=== PATIENT | female | born 1935 | race Caucasian/White ===

== ENCOUNTER 2017-05-18 13:00 | Emergency (ER) | payer MEDICARE, OTHER ==
[~2017-05-18] VITALS: Ht 157.5 cm; Wt 65.3 kg
[~2017-05-18 13:00] MED LIST: ACYC400; AMLO5 PO; AMOCLA875 PO; ASPI325; ASPI325EC; ASPI81CH PO; Ativan0.5 MG PO; CEPH250A PO; CONEST.625 PO; CONESTTC VAG; DOCU100; DOCU100 PO; ESCI10; ESCI10 PO; ESCI20 PO; FENO67 PO; FOLI1; FOLI1 PO; FURO40; GAVILAX17 GM PO; GEMF600 PO; HYDACE5; HYDACE5 PO; HYDR1TAB94 PO; IBUP600 PO; Kristalose20 GM PO; LEVFLO500 PO; LEVSOD100; LEVSOD100 PO; LIVALO4 MG PO; LOPRESSOR PO; LORA.5; LORA2; LOSARTAN-HCTZ1 EAC2 PO; LOSHYD; LOSHYD100 PO; MAGCIT300 PO; METO100 PO; METO100ER PO; METO25ER; Miralax17 GM PO; Norco 5-325 Ta1 EACH PO; OMEP20ER PO; OMEPRAZOLE MAGN20 MG PO; OXYACE5T PO; PANT40; POTA20PAC; POTCHL20ER; POTCHL20ER PO; PRAV20; RISE35; ROSU10TA PO; ROSU5 PO; SOTO80; TRAM50 PO; Tizanidine HCl2 MG PO; VERA240ERA; VERA80; ZOLP10 PO
[2017-05-18] MEDS ORDERED: PENVK500 PO (15:18)
[2017-05-18] MEDS ORDERED: NYST100000 PO (15:18)
[2017-05-18] MEDS ORDERED: Nystatin15 GM TOP (15:18)
[2018-04-22] MEDS ORDERED: FISH OIL 1,2001 EACH PO (14:11)
== END 2017-05-18 15:59 | disposition home or self-care (01) ==
LOC: ER 13:00
DX: A46 Erysipelas (principal); B37.0 Candidal stomatitis; Z88.8 Allergy status to other drugs, medicaments and biological substances; Z79.899 Other long term (current) drug therapy; Z79.82 Long term (current) use of aspirin; Z79.891 Long term (current) use of opiate analgesic; Z87.891 Personal history of nicotine dependence
CPT/HCPCS: 99283

== ENCOUNTER 2018-05-27 11:34 | Day surgery (SDC) | payer MEDICARE, OTHER ==
[~2018-05-27 11:34] MED LIST changes: +FISH OIL 1,2001 EACH PO; +NYST100000 PO; +Nystatin15 GM TOP; +PENVK500 PO
--- NOTE | 2018-05-27 13:32 | NUR ---
INTO STEP-AMBULATING WITH A CANE. PT A&O X3. REPORTS 05/30 LOWER BACK. NPO STATUS AND ALLERGIES CONFIRMED. SBP 187/72.
--- NOTE | 2018-05-27 15:14 | NUR ---
BANDAIDE INTACT TO LOWER BACK. PT REPORTS 4/10 LOWER BACK PAIN. BP 137/61. PT GIVEN JILLIAN CRACKERS AND OJ PER HER REQUEST.DISCHARGE INSTRUCTIONS GIVEN.
== END 2018-05-27 15:30 | disposition home or self-care (01) ==
LOC: ORSCMMR 11:34 → ORD 14:00 → ORSCMMR 15:30
PROVIDERS: Orthopaedic Surgery
PROC: 3E0R33Z Introduction of Anti-inflammatory into Spinal Canal, Percutaneous Approach (ICD-10-PCS; principal; 2018-05-27 14:00)
DX: M54.16 Radiculopathy, lumbar region (principal); I10 Essential (primary) hypertension; G47.33 Obstructive sleep apnea (adult) (pediatric); K21.9 Gastro-esophageal reflux disease without esophagitis; Z79.82 Long term (current) use of aspirin; Z79.899 Other long term (current) drug therapy
CPT/HCPCS: J1040

== ENCOUNTER 2018-08-26 12:39 | Day surgery (SDC) | payer MEDICARE, OTHER ==
[~2018-08-26] VITALS: Ht 159 cm; Wt 60.6 kg
--- NOTE | 2018-08-26 13:28 | NUR ---
"DAY SURGERY RN | ADMIT Patient able to ambulate self around bed. Able to dress self. No issues in admit process. Med rec, allergies, and admit forms completed."
--- NOTE | 2018-08-26 14:34 | NUR ---
08/26/18 1434 Marla Zelaya FLUORO TIME 24 SECONDS.
== END 2018-08-26 22:50 | disposition home or self-care (01) ==
LOC: ORSCMMR 12:39 → ORD 14:00 → ORSCMMR 22:50 → ORSCSDS 09-05 12:15
PROVIDERS: Orthopaedic Surgery
PROC: 3E0R33Z Introduction of Anti-inflammatory into Spinal Canal, Percutaneous Approach (ICD-10-PCS; principal; 2018-08-26 14:00)
DX: M54.16 Radiculopathy, lumbar region (principal); K21.9 Gastro-esophageal reflux disease without esophagitis; E03.9 Hypothyroidism, unspecified; I10 Essential (primary) hypertension; E78.00 Pure hypercholesterolemia, unspecified; I25.10 Atherosclerotic heart disease of native coronary artery without angina pectoris; Z79.82 Long term (current) use of aspirin; Z79.899 Other long term (current) drug therapy
CPT/HCPCS: J1040

== ENCOUNTER 2018-09-04 18:39 | Inpatient (IN) | payer MEDICARE, OTHER ==
[~2018-09-04] VITALS: Ht 165.1 cm; Wt 61.4 kg
[~2018-09-04 18:39] MED LIST changes: -FISH OIL 1,2001 EACH PO; -LOSARTAN-HCTZ1 EAC2 PO; +LOSARTAN-HCTZ1 EACH PO
[2018-09-04] MEDS ORDERED: LEVSOD50 PO (19:08)
[2018-09-04] MEDS ORDERED: Zocor20 MG PO (19:08)
[2018-09-04] MEDS ORDERED: GEMF600 PO (19:08)
[2018-09-04] MEDS ORDERED: METO100 PO (19:08)
[2018-09-04 20:13] LABS: BASOPHILS ABSOLUTE AUTO 0.02 K/mm3 (0.00-0.23); BASOPHILS PERCENT AUTO 0 % (0-2); EOSINOPHILS ABSOLUTE AUTO 0.04 K/mm3 (0.00-0.68); EOSINOPHILS PERCENT AUTO 0 % (0-6); Hemoglobin 12.8 g/dL (11.5-16.0); IMMATURE GRAN ABSOLUTE AUTO 0.04 K/mm3 (0.00-0.10); IMMATURE GRAN PERCENT AUTO 0 % (0-1); LYMPHOCYTES ABSOLUTE AUTO 0.69 K/mm3 (0.84-5.20); LYMPHOCYTES PERCENT AUTO 7 % (21-46); MONOCYTES ABSOLUTE AUTO 0.18 K/mm3 (0.16-1.47); MONOCYTES PERCENT AUTO 2 % (4-13); Mean Corpuscular HGB 31.8 pg (26.0-34.0); Mean Corpuscular HGB Conc 33.7 g/dL (31.5-36.5); Mean Corpuscular Volume 94 fL (80-100); Mean Platelet Volume 12.5 fL (9.1-12.4); NEUTROPHILS ABSOLUTE AUTO 8.46 K/mm3 (1.96-9.15); NEUTROPHILS PERCENT AUTO 90 % (41-73); Platelet Count 152 K/mm3 (150-400); RDW Standard Deviation 45.1 fL (35.1-46.3); Red Blood Cell Count 4.03 M/mm3 (3.80-5.20); White Blood Cell Count 9.43 K/mm3 (4.00-11.30)
[2018-09-04 20:27] LABS: Albumin, Blood 3.4 g/dL (3.4-5.0); Albumin/Globulin Ratio 0.9 (0.8-1.8); Bilirubin, Total 4.4 mg/dL (0.1-1.0); Bun/Creatinine Ratio 32.2 (12.0-20.0); Calcium, Blood 9.1 mg/dL (8.5-10.1); Creatinine, Blood 0.99 mg/dL (0.40-1.00); Globulin, Blood 3.6 g/dL (2.2-4.0); Potassium, Blood 3.6 mmol/L (3.5-5.5); Troponin I 0.038 ng/mL (0.000-0.040)
[2018-09-04] MEDS ORDERED: ZOLP10 PO (21:34)
[2018-09-04] MEDS ORDERED: Fish Oil 10001000 MG PO (22:37)
[2018-09-04] MEDS ORDERED: OMEPRAZOLE20 MG PO (22:37)
--- NOTE | 2018-09-04 23:46 | NUR ---
PT REPORTS THAT SHE WISHES TO BE A FULL CODE. SPOKE WITH THE DR AND GOT ORDER FOR HER TO BE A FULL CODE.
[2018-09-05 00:45] LABS: Source, Urine Clean Catch
[2018-09-05 00:52] LABS: Appearance, Urine Clear (Clear); Blood, Urine Neg (Neg); Color, Urine Amber (P-Yellow); Glucose Qualitative, Urine Neg (Neg); Ketones, Urine Neg (Neg); Leukocyte Esterase, Urine 1+ (Neg); Nitrite, Urine Neg (Neg); Protein, Urine 3+ (Neg); Specific Gravity, Urine 1.005 (1.003-1.022); Urobilinogen, Urine 2+ (Normal)
[2018-09-05 00:55] LABS: Bilirubin, Urine 2+ (Neg)
[2018-09-05 01:00] LABS: Squamous Epithelial Cells Mod /hpf (Few); White Blood Cells, Urine 0-2 /hpf (0-5)
[2018-09-05 01:01] LABS: Bacteria Mod /hpf
--- NOTE | 2018-09-05 05:53 | NUR ---
SHIFT SUMMARY PT IS AN 82 Y/O FEMALE, A NEW ADMIT DURING THE NIGHT WHO ARRIVED ON THE FLOOR AT 2306. PT IS A&O X 4. SHE WAS ADMITTED FOR LOWER CHEST/ABDOMINAL PAIN. ON ADMIT, THE PT REPORTED THAT HER SHARP PAIN HAD BEEN RELIEVED, BUT THAT SHE STILL HAD MILD ACHING PAIN IN THE SAME AREA, RATED AT A 2/10. SHE DENIED ANY NAUSEA OR SOB. PER THE SOLAR PHOTOVOLTAIC INSTALLER, PT REMAINED IN NSR/SINUS PAMELA IN THE 50-60S WITH A FIRST DEGREE HEART BLOCK. THE PT DID HAVE AN ELEVATED TROPONIN ON RECHECK, INCREASED FROM 0.038 TO 0.139. THE HOSPITALIST DR CARRILLO WAS NOTIFIED, NO NEW ORDERS AT THIS TIME. ALL OTHER VITALS STABLE. NO OTHER ACUTE CHANGES IN PT CONDITION NOTED AT THIS TIME. WILL CONTINUE TO MONITOR AND TREAT PER EMAR.
[2018-09-05 07:44] LABS: BASOPHILS ABSOLUTE AUTO 0.03 K/mm3 (0.00-0.23); BASOPHILS PERCENT AUTO 0 % (0-2); EOSINOPHILS ABSOLUTE AUTO 0.02 K/mm3 (0.00-0.68); EOSINOPHILS PERCENT AUTO 0 % (0-6); Hematocrit 34.9 % (33.0-51.0); IMMATURE GRAN ABSOLUTE AUTO 0.05 K/mm3 (0.00-0.10); IMMATURE GRAN PERCENT AUTO 0 % (0-1); LYMPHOCYTES ABSOLUTE AUTO 1.08 K/mm3 (0.84-5.20); LYMPHOCYTES PERCENT AUTO 10 % (21-46); MONOCYTES PERCENT AUTO 7 % (4-13); Mean Corpuscular HGB 32.3 pg (26.0-34.0); Mean Corpuscular HGB Conc 34.4 g/dL (31.5-36.5); Mean Corpuscular Volume 94 fL (80-100); NEUTROPHILS ABSOLUTE AUTO 9.36 K/mm3 (1.96-9.15); NEUTROPHILS PERCENT AUTO 83 % (41-73); Platelet Count 126 K/mm3 (150-400); RDW Coefficient Variation 13.2 % (11.7-14.2); RDW Standard Deviation 45.2 fL (35.1-46.3); Red Blood Cell Count 3.72 M/mm3 (3.80-5.20); White Blood Cell Count 11.34 K/mm3 (4.00-11.30)
[2018-09-05 08:04] LABS: Albumin/Globulin Ratio 0.9 (0.8-1.8); Bilirubin, Total 5.6 mg/dL (0.1-1.0); Bun/Creatinine Ratio 30.7 (12.0-20.0); Calcium, Blood 8.5 mg/dL (8.5-10.1); Creatinine, Blood 1.14 mg/dL (0.40-1.00); Globulin, Blood 3.3 g/dL (2.2-4.0); Potassium, Blood 3.5 mmol/L (3.5-5.5); Total Protein, Blood 6.3 g/dL (6.4-8.2)
[2018-09-05 08:07] LABS: Thyroid Stimulating Hormone 0.264 uIU/mL (0.360-4.800)
--- NOTE | 2018-09-05 10:41 | NUR ---
Echocardiogram completed.
--- NOTE | 2018-09-05 15:34 | NUR ---
Mrs. Head was welcoming of companionship and prayer. She told me about her health issues, her divorce, and expressed deep love for her children. She admits she is fearful of dx. I normalized her emotions, provided gentle senior genetic counselor, and we prayed together. These interventions appeared helpful. Prenatal Genetic Counselor services will remain available.
--- NOTE | 2018-09-05 17:52 | NUR ---
SHIFT SUMMARY- PT A/OX4, SBA UP IN ROOM. PT REPORTS SORENESS TO EPIGASTRIC AREA. PT DENIES ANY OTHER COMPLAINTS. LS CLEAR, ON RA. TELE SR WITH FIRST DEGREE AT 62. ABD TENDER WITH PALPATION. ECHO, U/S AND CT COMPLETED THIS SHIFT. URINE ORANGE IN COLOR AND PT NOTED TO BE SLIGHT JAUNDICED. IVF STARTED, NS AT 75ML/HR X2 LITERS. NO OTHER ACUTE CHANGES THIS SHIFT.
[2018-09-06 04:48] LABS: BASOPHILS ABSOLUTE AUTO 0.02 K/mm3 (0.00-0.23); BASOPHILS PERCENT AUTO 0 % (0-2); EOSINOPHILS ABSOLUTE AUTO 0.12 K/mm3 (0.00-0.68); EOSINOPHILS PERCENT AUTO 2 % (0-6); Hematocrit 34.3 % (33.0-51.0); Hemoglobin 11.5 g/dL (11.5-16.0); IMMATURE GRAN ABSOLUTE AUTO 0.02 K/mm3 (0.00-0.10); IMMATURE GRAN PERCENT AUTO 0 % (0-1); LYMPHOCYTES ABSOLUTE AUTO 0.95 K/mm3 (0.84-5.20); LYMPHOCYTES PERCENT AUTO 15 % (21-46); MONOCYTES ABSOLUTE AUTO 0.44 K/mm3 (0.16-1.47); MONOCYTES PERCENT AUTO 7 % (4-13); Mean Corpuscular HGB Conc 33.5 g/dL (31.5-36.5); Mean Corpuscular Volume 96 fL (80-100); Mean Platelet Volume 12.1 fL (9.1-12.4); NEUTROPHILS ABSOLUTE AUTO 4.86 K/mm3 (1.96-9.15); NEUTROPHILS PERCENT AUTO 76 % (41-73); Platelet Count 101 K/mm3 (150-400); RDW Coefficient Variation 13.1 % (11.7-14.2); RDW Standard Deviation 45.9 fL (35.1-46.3); Red Blood Cell Count 3.59 M/mm3 (3.80-5.20); White Blood Cell Count 6.41 K/mm3 (4.00-11.30)
[2018-09-06 05:15] LABS: Albumin, Blood 2.9 g/dL (3.4-5.0); Anion Gap 7 mmol/L (6-16); Blood Urea Nitrogen 28 mg/dL (8-24); Bun/Creatinine Ratio 28.1 (12.0-20.0); CHOL/HDL RATIO 8.1; CO2, Blood 25 mmol/L (21-32); Calcium, Blood 8.6 mg/dL (8.5-10.1); Chloride, Blood 110 mmol/L (98-108); Cholesterol 145 mg/dL (50-200); Glomerular Filtration Rate 56 (60-); Glucose, Blood 86 mg/dL (70-99); HDL Cholesterol 18 mg/dL (>39); LDL/HDL RATIO 4.3; Low Density Lipoprotein Chol 78 mg/dL (0-110); Phosphorus, Blood 2.5 mg/dL (2.5-4.9); Potassium, Blood 3.2 mmol/L (3.5-5.5); Sodium, Blood 142 mmol/L (136-145); Triglycerides 245 mg/dL (30-160); Very Low Density Lipoprot Chol 49 mg/dL (6-32)
--- NOTE | 2018-09-06 06:07 | NUR ---
*SHIFT SUMMARY* PT IS ALERT AND ORIENTED. SBA TO BATHROOM. TELE ON. NO COMPLAINTS OF PAIN IN CHEST OR ABDOMEN. PATIENT NEEDS STOOL SAMPLE. MIRALAX GIVEN WITH PM PILLS. STILL NO BM. USES CALL LIGHT APPROPRIATELY. PT IS HOPING TO BE ABLE TO GO HOME TODAY. VITAL SIGNS STABLE.
[2018-09-06 09:06] LABS: Albumin, Blood 2.9 g/dL (3.4-5.0); Albumin/Globulin Ratio 0.8 (0.8-1.8); Bilirubin, Direct 1.5 mg/dL (0.0-0.3); Bilirubin, Indirect 0.4 mg/dL (0.1-0.7); Bilirubin, Total 1.9 mg/dL (0.1-1.0); Globulin, Blood 3.7 g/dL (2.2-4.0); Total Protein, Blood 6.6 g/dL (6.4-8.2)
[2018-09-06] MEDS ORDERED: METO50ER PO (11:43)
[2018-09-06] MEDS ORDERED: PANT40 PO (11:44)
[2018-09-06] MEDS ORDERED: LOSA50 PO (11:44)
[2018-09-06] MEDS ORDERED: MELATONIN5 M1 PO (11:46)
[2018-09-06] MEDS ORDERED: MIRALAX17 GM PO (11:46)
--- NOTE | 2018-09-06 14:39 | NUR ---
1340 PT DISCHARGED HOME VIA PERSONAL VEHICLE ACCOMPANIED AND DRIVEN BY FAMILY. IV REMOVED. NEW RX FAXED TO [facility] PER PT REQUEST. D/C INSTRUCTIONS REVIEWED WITH PT AND COPY PROVIDED, PT ACKNOWLEDGED UNDERSTANDING. PT REQUESTED TO MAKE HER OWN FOLLOW UP APPOINTMENT WITH PCP AFTER SHE RETURNED HOME. PT RECIEVED IV ROCEPHIN AND PO POTASSIUM THIS MORNING PRIOR TO D/C. NO NEW CHANGES.
[2018-09-08 04:06] LABS: HBSAG SCREEN Negative (Negative); HEP A AB, IGM Negative (Negative); HEP B CORE AB, IGM Negative (Negative); HEP C VIRUS AB 0.1 (0.0-0.9)
== END 2018-09-06 13:58 | disposition home or self-care (01) | DRG 392 ==
LOC: ER 18:39 → MEDS 18:40 → ENPENDDIS 09-06 11:29 → MEDS 09-06 13:58
PROVIDERS: Emergency Medicine; Internal Medicine; Nurse Practitioner Acute Care; ADMIT Internal Medicine
DX: K21.0 Gastro-esophageal reflux disease with esophagitis (principal); K22.70 Barrett's esophagus without dysplasia; D69.6 Thrombocytopenia, unspecified; I25.10 Atherosclerotic heart disease of native coronary artery without angina pectoris; Z95.1 Presence of aortocoronary bypass graft; E78.5 Hyperlipidemia, unspecified; E03.9 Hypothyroidism, unspecified; I10 Essential (primary) hypertension; K59.00 Constipation, unspecified; F41.1 Generalized anxiety disorder; N81.9 Female genital prolapse, unspecified; M48.00 Spinal stenosis, site unspecified; F32.9 Major depressive disorder, single episode, unspecified; Z66 Do not resuscitate
CPT/HCPCS: 36415; 71046; 74177; 76705; 80053; 80061; 80069; 80074; 80076; 81001; 83036; 83690; 83735; 83880; 84443; 84484; 85025; 87086; 93005; 93010; 93306; 96361; 96365; 96366; 96372; 96375; 99285-25; C9113; G0378; J0696; J1650; J7030; J7050; Q9967

== ENCOUNTER 2020-08-09 17:51 | Inpatient (IN) | payer MEDICARE, OTHER ==
[~2020-08-09] VITALS: Ht 165.1 cm; Wt 51.8 kg
[~2020-08-09 17:51] MED LIST changes: +Fish Oil 10001000 MG PO; +MELATONIN5 M1 PO; +MIRALAX17 GM PO; +OMEPRAZOLE20 MG PO; +PANT40 PO; +Zocor20 MG PO
[2020-08-09 18:17] LABS: BASOPHILS ABSOLUTE AUTO 0.05 K/mm3 (0.00-0.23); BASOPHILS PERCENT AUTO 1 % (0-2); EOSINOPHILS ABSOLUTE AUTO 0.24 K/mm3 (0.00-0.68); EOSINOPHILS PERCENT AUTO 3 % (0-6); Hematocrit 42.2 % (33.0-51.0); Hemoglobin 14.3 g/dL (11.5-16.0); IMMATURE GRAN ABSOLUTE AUTO 0.01 K/mm3 (0.00-0.10); IMMATURE GRAN PERCENT AUTO 0 % (0-1); LYMPHOCYTES ABSOLUTE AUTO 2.96 K/mm3 (0.84-5.20); LYMPHOCYTES PERCENT AUTO 41 % (21-46); MONOCYTES ABSOLUTE AUTO 0.69 K/mm3 (0.16-1.47); MONOCYTES PERCENT AUTO 10 % (4-13); Mean Corpuscular HGB 30.9 pg (26.0-34.0); Mean Corpuscular HGB Conc 33.9 g/dL (31.5-36.5); Mean Corpuscular Volume 91 fL (80-100); NEUTROPHILS ABSOLUTE AUTO 3.21 K/mm3 (1.96-9.15); NEUTROPHILS PERCENT AUTO 45 % (41-73); Platelet Count 172 K/mm3 (150-400); RDW Coefficient Variation 13.4 % (11.7-14.2); RDW Standard Deviation 44.5 fL (35.1-46.3); Red Blood Cell Count 4.63 M/mm3 (3.80-5.20); White Blood Cell Count 7.16 K/mm3 (4.00-11.30)
[2020-08-09 18:50] LABS: Troponin I <0.015 ng/mL (0.000-0.040)
[2020-08-09 18:54] LABS: Alanine Aminotransfer (ALT/SGP 15 U/L (12-78); Albumin, Blood 3.8 g/dL (3.4-5.0); Alk Phos 88 U/L (50-136); Anion Gap 8 mmol/L (6-16); Aspartate Aminotrans (AST/SGOT 23 U/L (12-37); Bilirubin, Total 0.6 mg/dL (0.1-1.0); Blood Urea Nitrogen 14 mg/dL (8-24); Bun/Creatinine Ratio 15.1 (12.0-20.0); CO2, Blood 24 mmol/L (21-32); Calcium, Blood 9.5 mg/dL (8.5-10.1); Chloride, Blood 111 mmol/L (98-108); Creatinine, Blood 0.93 mg/dL (0.40-1.00); Globulin, Blood 3.9 g/dL (2.2-4.0); Glomerular Filtration Rate >60 (60-); Glucose, Blood 99 mg/dL (70-99); Potassium, Blood 3.6 mmol/L (3.5-5.5); Sodium, Blood 143 mmol/L (136-145); Total Protein, Blood 7.7 g/dL (6.4-8.2)
[2020-08-09 19:46] LABS: Phosphorus, Blood 3.9 mg/dL (2.5-4.9)
[2020-08-09 20:27] LABS: Influenza A, PCR NEGATIVE (NEGATIVE); Influenza B, PCR NEGATIVE (NEGATIVE); Resp Syncytial Virus, PCR NEGATIVE (NEGATIVE); SARS-Cov-2 (COVID-19) PCR, MMC NEGATIVE (NEGATIVE)
[2020-08-09] MEDS ORDERED: LOSARTAN POTAS100 M1 PO (20:56)
[2020-08-09] MEDS ORDERED: GEMF600 PO (20:57)
[2020-08-09] MEDS ORDERED: METO100ER PO (20:58)
[2020-08-09] MEDS ORDERED: LIVALO4 MG PO (21:12)
[2020-08-09] MEDS ORDERED: Aspir 8181 MG PO (21:12)
[2020-08-09] MEDS ORDERED: OMEP20ER PO (21:13)
[2020-08-09] MEDS ORDERED: AMLO5 PO (21:13)
[2020-08-09] MEDS ORDERED: EUTHYROX50 MCG PO (21:14)
[2020-08-09] MEDS ORDERED: ESCI10 PO (21:15)
[2020-08-09] MEDS ORDERED: ZOLP10 PO (21:55)
--- NOTE | 2020-08-10 04:03 | NUR ---
BLANKET INSPECTOR SUMMARY PT ARRIVED TO THE UNIT AND WAS ABLE TO TRANSFER SELF FROM ER BED TO PCU BED. PT HAS REMAINED AXO X4 DURING THE SHIFT. PT'S BP WAS STILL ELEVATED W A SBP OF 175 WHEN SHE ARRIVED HOWEVER AFTER SHE RECEIVED HER LOPRESSORE AND NORVASC HER SBP WAS IN THE LOW 130'S. THE PT HAS VOIDED SEVERAL TIMES DURING THIS SHIFT AFTER RECEIVING LASIX IN THE ER. O2 SATS REMAIN >93% ON RM AIR AND TELE HAS SHOWN AFIB W A BBB IN THE 80-90'S. NO C/O PAIN OR NAUSEA THIS SHIFT. PT WAS NOT ABLE TO RECALL WHICH MEDICATIONS SHE TAKES AT HOME, WCTM.
[2020-08-10 05:18] LABS: BASOPHILS ABSOLUTE AUTO 0.03 K/mm3 (0.00-0.23); BASOPHILS PERCENT AUTO 0 % (0-2); EOSINOPHILS PERCENT AUTO 1 % (0-6); Hematocrit 38.9 % (33.0-51.0); Hemoglobin 13.6 g/dL (11.5-16.0); IMMATURE GRAN ABSOLUTE AUTO 0.01 K/mm3 (0.00-0.10); IMMATURE GRAN PERCENT AUTO 0 % (0-1); LYMPHOCYTES ABSOLUTE AUTO 2.81 K/mm3 (0.84-5.20); LYMPHOCYTES PERCENT AUTO 40 % (21-46); MONOCYTES ABSOLUTE AUTO 0.73 K/mm3 (0.16-1.47); MONOCYTES PERCENT AUTO 10 % (4-13); Mean Corpuscular Volume 89 fL (80-100); Mean Platelet Volume 11.9 fL (9.1-12.4); NEUTROPHILS PERCENT AUTO 48 % (41-73); Platelet Count 154 K/mm3 (150-400); RDW Coefficient Variation 13.3 % (11.7-14.2); Red Blood Cell Count 4.39 M/mm3 (3.80-5.20); White Blood Cell Count 7.08 K/mm3 (4.00-11.30)
[2020-08-10 05:43] LABS: Alanine Aminotransfer (ALT/SGP 14 U/L (12-78); Albumin, Blood 3.7 g/dL (3.4-5.0); Albumin/Globulin Ratio 1.1 (0.8-1.8); Alk Phos 78 U/L (50-136); Anion Gap 8 mmol/L (6-16); Aspartate Aminotrans (AST/SGOT 25 U/L (12-37); Bilirubin, Total 0.8 mg/dL (0.1-1.0); Blood Urea Nitrogen 13 mg/dL (8-24); Bun/Creatinine Ratio 15.2 (12.0-20.0); CO2, Blood 27 mmol/L (21-32); Calcium, Blood 9.5 mg/dL (8.5-10.1); Chloride, Blood 107 mmol/L (98-108); Creatinine, Blood 0.86 mg/dL (0.40-1.00); Globulin, Blood 3.5 g/dL (2.2-4.0); Glomerular Filtration Rate >60 (60-); Glucose, Blood 95 mg/dL (70-99); Sodium, Blood 142 mmol/L (136-145); Total Protein, Blood 7.2 g/dL (6.4-8.2); Troponin I 0.023 ng/mL (0.000-0.040)
--- NOTE | 2020-08-10 08:59 | NUR ---
Call to Dr. Cannon regarding morning lab and potassium of 3.0. New orders received for oral potassium supplement, give scheduled lasix, and recheck serum potassium at noon.
--- NOTE | 2020-08-10 09:00 | NUR ---
Echocardiogram in progress.
--- NOTE | 2020-08-10 10:39 | NUR ---
Pt vomited what appeared to be breakfast, undigested, and medications. Probably due to the oral potassium which she took.
--- NOTE | 2020-08-10 12:01 | NUR ---
Pt reported that nausea was relieved shortly after vomiting this morning. Emesis was precipitated by her taking potassium liquid supplement after breakfast. She states that she has GERD and at times that makes her sensitive and causes vomiting.
--- NOTE | 2020-08-10 13:14 | NUR ---
Spiritual care visit conducted. Patient immediately shares her concerns about her future and being able to live alone in her house. She also voices her concerns about living in a facility and how damaging that would be to her spirit. Patient tells me that her family are out of state and could not help. 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 I normalize patient's experience and provide therapeutic listening, pastoral prenatal genetic counselor and prayer. Patient responds well and shows signs of reduced stress and worry. I will continue to remain available.
--- NOTE | 2020-08-10 14:44 | NUR ---
Spoke with Luana in [facility] for [facility] consultation request. She states that either the doctor or Tobias will be over to see the patient.
--- NOTE | 2020-08-10 15:19 | NUR ---
Spoke with patient. She states that she did see Dr. Cannon and he talked to her about another physician seeing her today. Noted Interventional Radiology consultation order; this was called into the office. Feet noted to be warm, pink and dry, with excellent capillary refill, and no observable wounds or ulcers. Pt states that she does have numbness of her feet, which bothers her mostly at night, and twice she has had her feet "give way" under her. STAtes that she was told it was sciatica, and that she had seen Dr. Hollingsworth as an outpatient for suspected problems with her spine. The pt is not really sure what the diagnosis was. Today she has been ambulatory to the bathroom with only minimal assistance.
[2020-08-11 03:59] LABS: BASOPHILS ABSOLUTE AUTO 0.04 K/mm3 (0.00-0.23); BASOPHILS PERCENT AUTO 1 % (0-2); EOSINOPHILS PERCENT AUTO 5 % (0-6); Hematocrit 37.7 % (33.0-51.0); Hemoglobin 13.1 g/dL (11.5-16.0); IMMATURE GRAN ABSOLUTE AUTO 0.01 K/mm3 (0.00-0.10); IMMATURE GRAN PERCENT AUTO 0 % (0-1); LYMPHOCYTES ABSOLUTE AUTO 3.28 K/mm3 (0.84-5.20); LYMPHOCYTES PERCENT AUTO 49 % (21-46); MONOCYTES ABSOLUTE AUTO 0.73 K/mm3 (0.16-1.47); MONOCYTES PERCENT AUTO 11 % (4-13); Mean Corpuscular HGB Conc 34.7 g/dL (31.5-36.5); Mean Corpuscular Volume 89 fL (80-100); Mean Platelet Volume 12.2 fL (9.1-12.4); NEUTROPHILS ABSOLUTE AUTO 2.32 K/mm3 (1.96-9.15); NEUTROPHILS PERCENT AUTO 35 % (41-73); Platelet Count 160 K/mm3 (150-400); RDW Coefficient Variation 13.3 % (11.7-14.2); RDW Standard Deviation 43.1 fL (35.1-46.3); Red Blood Cell Count 4.22 M/mm3 (3.80-5.20); White Blood Cell Count 6.68 K/mm3 (4.00-11.30)
[2020-08-11 04:21] LABS: Albumin, Blood 3.4 g/dL (3.4-5.0); Anion Gap 8 mmol/L (6-16); Blood Urea Nitrogen 18 mg/dL (8-24); Bun/Creatinine Ratio 18.8 (12.0-20.0); CO2, Blood 27 mmol/L (21-32); Calcium, Blood 9.1 mg/dL (8.5-10.1); Chloride, Blood 109 mmol/L (98-108); Creatinine, Blood 0.96 mg/dL (0.40-1.00); Glomerular Filtration Rate 59 (60-); Glucose, Blood 95 mg/dL (70-99); Magnesium, Blood 2.1 mg/dL (1.6-2.4); Phosphorus, Blood 3.8 mg/dL (2.5-4.9); Potassium, Blood 3.1 mmol/L (3.5-5.5); Sodium, Blood 144 mmol/L (136-145); Troponin I 0.022 ng/mL (0.000-0.040)
--- NOTE | 2020-08-11 04:41 | NUR ---
SHIFT SUMMARY PT IS ALERT, ORIENTED, AND COOPERATIVE WITH CARE. PT HAD A QUIET UNEVENTFUL NIGHT WITH BP STABLE. BP 113-138 SYSTOLIC. HR 70-80'S IN AFIB. O2 SATS >90% ON ROOM AIR. PT WAS ABLE TO WALK TO BATHROOM WITH A STAND-BY ASSIST, PT REPORTED FEELING WELL AND WAS ABLE TO STAND AND BRUSH HER TEETH. PT SLEPT T/O MOST OF THE NIGHT WITH MINIMAL INTERRUPTION. PT CONTINUES TO ASK ABOUT DISCHARGE AND WHEN THE DR WILL UPDATE HER. PT OTHERWISE DOING WELL SLEEPING IN BED WITH HOB ELEVATED.
--- NOTE | 2020-08-11 09:15 | NUR ---
Pt is c/o dark, foul-smelling urine and occasional burning with urination. NO UA noted on this admission chart. K level is 3.1 this morning. Yesterday pt vomited after oral liquid potassium supplement was given. Holding IV lasix until can talk with attending physician about replacement.
--- NOTE | 2020-08-11 09:17 | NUR ---
Pt denies any epigastril or abdominal pain since admission.
[2020-08-11 10:14] LABS: Source, Urine Clean Catch
--- NOTE | 2020-08-11 10:20 | NUR ---
Assisted to bathroom to void. UA sent, and potassium phosphast IVPB hung and infusing at this time. Neighbor Pradeep called at the pt's request. He will be here around 1530 to take the pt to flower picker prescriptions and then take her home.
[2020-08-11 10:23] LABS: Appearance, Urine Clear (Clear); Bilirubin, Urine Neg (Neg); Blood, Urine 2+ (Neg); Color, Urine Yellow (P-Yellow); Glucose Qualitative, Urine Neg (Neg); Ketones, Urine Neg (Neg); Leukocyte Esterase, Urine 2+ (Neg); Nitrite, Urine Neg (Neg); Protein, Urine 2+ (Neg); Specific Gravity, Urine 1.015 (1.003-1.022); Urobilinogen, Urine 1+ (Normal)
[2020-08-11 10:42] LABS: Squamous Epithelial Cells Mod /hpf (Few)
[2020-08-11 10:43] LABS: Bacteria Mod /hpf; Hyaline Casts 0-2 /lpf (0-2)
[2020-08-11] MEDS ORDERED: ACET325 PO (11:25)
[2020-08-11] MEDS ORDERED: HYDR1TAB94 PO (11:25)
[2020-08-11] MEDS ORDERED: FURO20 PO (11:26)
[2020-08-11] MEDS ORDERED: HYDR10 PO (11:29)
[2020-08-11] MEDS ORDERED: XARELTO20 MG PO (11:30)
[2020-08-11] MEDS ORDERED: KLOR-CON M1010 MEQ PO (11:30)
[2020-08-11] MEDS ORDERED: PROM25 PO (11:31)
--- NOTE | 2020-08-11 13:16 | NUR ---
Pt c/o tenderness at IV site left AC space. Noted infiltration, about 3 cm area of swelling. IV dc'd, and potassium phosphate infusion continued on the IV of the right hand. Pt reports some very minor irritation but IV site on hand is without swelling, redness or leaking. Ice pack applied for relief.
--- NOTE | 2020-08-11 14:48 | NUR ---
nutrition services assistant saw pt, and Lynn said that she gave her information on accepting PCP, as the pt would like to change providers in out pt setting.
--- NOTE | 2020-08-11 15:47 | NUR ---
reviewed discharge instructions with the patient and her neighbor, Quincy, who is also giving her a ride home. Pt states that he is a very good friend and very helpful to her at home. Pt was taken out for discharge in wheelchair by PCT to private vehicle.
--- NOTE | 2020-08-11 15:49 | NUR ---
Pt instructed to stop aspirin as she will be taking xarelto instead.
== END 2020-08-11 15:47 | disposition home or self-care (01) | DRG 291 ==
LOC: ER 17:51 → PCU 22:03
PROVIDERS: Emergency Medicine; Family Medicine; ADMIT Internal Medicine
DX: I11.0 Hypertensive heart disease with heart failure (principal); I50.31 Acute diastolic (congestive) heart failure; I16.1 Hypertensive emergency; E87.6 Hypokalemia; I73.9 Peripheral vascular disease, unspecified; R10.9 Unspecified abdominal pain; I48.91 Unspecified atrial fibrillation; E78.5 Hyperlipidemia, unspecified; K21.9 Gastro-esophageal reflux disease without esophagitis; E03.9 Hypothyroidism, unspecified; F41.9 Anxiety disorder, unspecified; G47.00 Insomnia, unspecified; I25.10 Atherosclerotic heart disease of native coronary artery without angina pectoris; G47.33 Obstructive sleep apnea (adult) (pediatric); M19.90 Unspecified osteoarthritis, unspecified site; F32.9 Major depressive disorder, single episode, unspecified; Z95.1 Presence of aortocoronary bypass graft; Z90.49 Acquired absence of other specified parts of digestive tract; Z79.899 Other long term (current) drug therapy; Z79.82 Long term (current) use of aspirin; Z90.710 Acquired absence of both cervix and uterus; Z95.5 Presence of coronary angioplasty implant and graft
CPT/HCPCS: 0241U; 36415; 71045; 74174; 80053; 80069; 81001; 83605; 83690; 83735; 83880; 84100; 84132; 84443; 84484; 85025; 86141; 87086; 93005; 93010; 93306; 96374-59; 97116; 97161; 97530; 99285-25; A9270; J1940; J7060; Q9967

== ENCOUNTER 2020-08-29 22:05 | Emergency (ER) | payer MEDICARE, OTHER ==
[~2020-08-29] VITALS: Ht 165.1 cm; Wt 54.9 kg
[~2020-08-29 22:05] MED LIST changes: +ACET325 PO; +Aspir 8181 MG PO; +EUTHYROX50 MCG PO; +FURO20 PO; +HYDR10 PO; +KLOR-CON M1010 MEQ PO; +LOSARTAN POTAS100 M1 PO; +PROM25 PO; +XARELTO20 MG PO
[2020-08-29 22:50] LABS: BASOPHILS ABSOLUTE AUTO 0.07 K/mm3 (0.00-0.23); BASOPHILS PERCENT AUTO 1 % (0-2); EOSINOPHILS ABSOLUTE AUTO 0.19 K/mm3 (0.00-0.68); EOSINOPHILS PERCENT AUTO 3 % (0-6); Hematocrit 38.8 % (33.0-51.0); Hemoglobin 13.2 g/dL (11.5-16.0); IMMATURE GRAN PERCENT AUTO 0 % (0-1); LYMPHOCYTES ABSOLUTE AUTO 2.04 K/mm3 (0.84-5.20); LYMPHOCYTES PERCENT AUTO 36 % (21-46); MONOCYTES ABSOLUTE AUTO 0.63 K/mm3 (0.16-1.47); MONOCYTES PERCENT AUTO 11 % (4-13); Mean Corpuscular Volume 91 fL (80-100); Mean Platelet Volume 12.1 fL (9.1-12.4); NEUTROPHILS ABSOLUTE AUTO 2.73 K/mm3 (1.96-9.15); NEUTROPHILS PERCENT AUTO 48 % (41-73); Platelet Count 137 K/mm3 (150-400); RDW Coefficient Variation 13.5 % (11.7-14.2); Red Blood Cell Count 4.26 M/mm3 (3.80-5.20); White Blood Cell Count 5.66 K/mm3 (4.00-11.30)
[2020-08-29 23:07] LABS: Alanine Aminotransfer (ALT/SGP 15 U/L (12-78); Albumin, Blood 3.5 g/dL (3.4-5.0); Albumin/Globulin Ratio 0.9 (0.8-1.8); Alk Phos 85 U/L (50-136); Anion Gap 6 mmol/L (6-16); Aspartate Aminotrans (AST/SGOT 19 U/L (12-37); Bilirubin, Total 0.6 mg/dL (0.1-1.0); Blood Urea Nitrogen 15 mg/dL (8-24); Bun/Creatinine Ratio 18.4 (12.0-20.0); CO2, Blood 24 mmol/L (21-32); Calcium, Blood 9.3 mg/dL (8.5-10.1); Chloride, Blood 112 mmol/L (98-108); Creatinine, Blood 0.82 mg/dL (0.40-1.00); Globulin, Blood 3.8 g/dL (2.2-4.0); Glomerular Filtration Rate >60 (60-); Glucose, Blood 101 mg/dL (70-99); Potassium, Blood 3.9 mmol/L (3.5-5.5); Sodium, Blood 142 mmol/L (136-145); Total Protein, Blood 7.3 g/dL (6.4-8.2)
[2020-08-30] LABS: Troponin I <0.015 ng/mL (0.000-0.040)
[2020-08-30] MEDS ORDERED: XARELTO20 M1 PO (17:04)
[2020-08-30] MEDS ORDERED: TRAZ50 PO (17:05)
[2020-08-30] MEDS ORDERED: SIME80CH PO (18:11)
[2020-08-30] MEDS ORDERED: Norco 5-325 Ta1 EACH PO (18:12)
== END 2020-08-30 05:48 | disposition home or self-care (01) ==
LOC: ER 22:05
PROVIDERS: Emergency Medicine
DX: R00.2 Palpitations (principal); Z79.899 Other long term (current) drug therapy; Z79.01 Long term (current) use of anticoagulants
CPT/HCPCS: 36415; 71046; 80053; 83690; 84484; 85025; 93005; 93010; 99285-25

== ENCOUNTER 2020-08-30 16:25 | Emergency (ER) | payer MEDICARE, OTHER ==
[~2020-08-30] VITALS: Ht 165.1 cm; Wt 55.3 kg
[2020-08-30 16:55] LABS: BASOPHILS ABSOLUTE AUTO 0.04 K/mm3 (0.00-0.23); BASOPHILS PERCENT AUTO 1 % (0-2); EOSINOPHILS ABSOLUTE AUTO 0.13 K/mm3 (0.00-0.68); EOSINOPHILS PERCENT AUTO 2 % (0-6); Hematocrit 43.1 % (33.0-51.0); Hemoglobin 14.5 g/dL (11.5-16.0); IMMATURE GRAN ABSOLUTE AUTO 0.02 K/mm3 (0.00-0.10); IMMATURE GRAN PERCENT AUTO 0 % (0-1); LYMPHOCYTES ABSOLUTE AUTO 1.78 K/mm3 (0.84-5.20); LYMPHOCYTES PERCENT AUTO 26 % (21-46); MONOCYTES ABSOLUTE AUTO 0.77 K/mm3 (0.16-1.47); MONOCYTES PERCENT AUTO 11 % (4-13); Mean Corpuscular HGB Conc 33.6 g/dL (31.5-36.5); Mean Corpuscular Volume 92 fL (80-100); Mean Platelet Volume 12.1 fL (9.1-12.4); NEUTROPHILS ABSOLUTE AUTO 4.05 K/mm3 (1.96-9.15); NEUTROPHILS PERCENT AUTO 60 % (41-73); Platelet Count 153 K/mm3 (150-400); RDW Coefficient Variation 13.8 % (11.7-14.2); RDW Standard Deviation 46.2 fL (35.1-46.3); Red Blood Cell Count 4.67 M/mm3 (3.80-5.20); White Blood Cell Count 6.79 K/mm3 (4.00-11.30)
[2020-08-30] MEDS ORDERED: XARELTO20 M1 PO (17:04)
[2020-08-30 17:05] LABS: Alanine Aminotransfer (ALT/SGP 15 U/L (12-78); Albumin, Blood 4.3 g/dL (3.4-5.0); Alk Phos 100 U/L (50-136); Anion Gap 7 mmol/L (6-16); Aspartate Aminotrans (AST/SGOT 23 U/L (12-37); Blood Urea Nitrogen 14 mg/dL (8-24); Bun/Creatinine Ratio 17.5 (12.0-20.0); CO2, Blood 24 mmol/L (21-32); Calcium, Blood 10.1 mg/dL (8.5-10.1); Chloride, Blood 109 mmol/L (98-108); Globulin, Blood 4.2 g/dL (2.2-4.0); Glomerular Filtration Rate >60 (60-); Glucose, Blood 92 mg/dL (70-99); Potassium, Blood 3.8 mmol/L (3.5-5.5); Sodium, Blood 140 mmol/L (136-145); Total Protein, Blood 8.5 g/dL (6.4-8.2); Troponin I <0.015 ng/mL (0.000-0.040)
[2020-08-30] MEDS ORDERED: TRAZ50 PO (17:05)
[2020-08-30] MEDS ORDERED: SIME80CH PO (18:11)
[2020-08-30] MEDS ORDERED: Norco 5-325 Ta1 EACH PO (18:12)
== END 2020-08-30 19:02 | disposition home or self-care (01) ==
LOC: ER 16:25
PROVIDERS: Emergency Medicine
DX: R07.89 Other chest pain (principal); R06.00 Dyspnea, unspecified; I10 Essential (primary) hypertension; E78.00 Pure hypercholesterolemia, unspecified; I25.2 Old myocardial infarction
CPT/HCPCS: 36415; 71046; 80053; 83880; 84484; 85025; 93005; 93010; 99284-25; A9270; A9270-GY

== ENCOUNTER 2020-09-28 10:59 | Emergency (ER) | payer OTHER ==
[~2020-09-28] VITALS: Ht 165.1 cm; Wt 52.2 kg
[~2020-09-28 10:59] MED LIST changes: +SIME80CH PO; +TRAZ50 PO; +XARELTO20 M1 PO
[2020-09-28 12:58] LABS: BASOPHILS ABSOLUTE AUTO 0.04 K/mm3 (0.00-0.23); BASOPHILS PERCENT AUTO 1 % (0-2); EOSINOPHILS ABSOLUTE AUTO 0.17 K/mm3 (0.00-0.68); EOSINOPHILS PERCENT AUTO 3 % (0-6); Hematocrit 35.8 % (33.0-51.0); IMMATURE GRAN ABSOLUTE AUTO 0.02 K/mm3 (0.00-0.10); IMMATURE GRAN PERCENT AUTO 0 % (0-1); LYMPHOCYTES ABSOLUTE AUTO 1.89 K/mm3 (0.84-5.20); LYMPHOCYTES PERCENT AUTO 33 % (21-46); MONOCYTES ABSOLUTE AUTO 0.72 K/mm3 (0.16-1.47); MONOCYTES PERCENT AUTO 12 % (4-13); Mean Corpuscular HGB 30.8 pg (26.0-34.0); Mean Corpuscular HGB Conc 33.5 g/dL (31.5-36.5); Mean Corpuscular Volume 92 fL (80-100); Mean Platelet Volume 12.9 fL (9.1-12.4); NEUTROPHILS ABSOLUTE AUTO 2.96 K/mm3 (1.96-9.15); NEUTROPHILS PERCENT AUTO 51 % (41-73); Platelet Count 132 K/mm3 (150-400); RDW Coefficient Variation 13.7 % (11.7-14.2)
[2020-09-28 13:21] LABS: Alanine Aminotransfer (ALT/SGP 23 U/L (12-78); Albumin, Blood 3.4 g/dL (3.4-5.0); Albumin/Globulin Ratio 0.9 (0.8-1.8); Alk Phos 80 U/L (50-136); Anion Gap 7 mmol/L (6-16); Aspartate Aminotrans (AST/SGOT 37 U/L (12-37); Bilirubin, Total 0.5 mg/dL (0.1-1.0); Blood Urea Nitrogen 27 mg/dL (8-24); CO2, Blood 24 mmol/L (21-32); Calcium, Blood 9.2 mg/dL (8.5-10.1); Chloride, Blood 110 mmol/L (98-108); Creatinine, Blood 0.93 mg/dL (0.40-1.00); Globulin, Blood 3.8 g/dL (2.2-4.0); Glomerular Filtration Rate >60 (60-); Glucose, Blood 97 mg/dL (70-99); Magnesium, Blood 2.2 mg/dL (1.6-2.4); Potassium, Blood 3.8 mmol/L (3.5-5.5); Sodium, Blood 141 mmol/L (136-145); Total Protein, Blood 7.2 g/dL (6.4-8.2)
[2020-09-28] MEDS ORDERED: TRAM50 PO (14:24)
[2020-09-28] MEDS ORDERED: ANUCORT-HC25 M1 PR (14:24)
== END 2020-09-28 14:51 | disposition home or self-care (01) ==
LOC: ER 10:59
PROVIDERS: Emergency Medicine
DX: K64.4 Residual hemorrhoidal skin tags (principal); Z79.01 Long term (current) use of anticoagulants; Z79.899 Other long term (current) drug therapy
CPT/HCPCS: 36415; 73590; 80053; 82272; 83735; 85025; 99283-25; A9270

== ENCOUNTER 2020-10-19 06:46 | Emergency (ER) | payer OTHER ==
[~2020-10-19] VITALS: Ht 160 cm; Wt 52.6 kg
[~2020-10-19 06:46] MED LIST changes: +ANUCORT-HC25 M1 PR
[2020-10-19 08:00] LABS: Calcium, Ionized (POC) 1.11 mmol/L (1.10-1.46); Chloride (POC) 107 mmol/L (98-108); Creatinine (POC) 0.8 mg/dL (0.6-1.0); Glucose (ISTAT POC) 105 mg/dL (70-99); Hemoglobin (POC) 11.9 g/dL (12.0-16.0); Potassium (POC) 3.9 mmol/L (3.5-5.5); Sodium (POC) 141 mmol/L (135-148); Total CO2 (POC) 25 mmol/L (21-32)
== END 2020-10-19 09:54 | disposition home or self-care (01) ==
LOC: ER 06:46
PROVIDERS: Emergency Medicine
DX: M79.605 Pain in left leg (principal); M79.604 Pain in right leg; I10 Essential (primary) hypertension; I48.91 Unspecified atrial fibrillation; I25.2 Old myocardial infarction; K21.9 Gastro-esophageal reflux disease without esophagitis; E78.00 Pure hypercholesterolemia, unspecified; E03.9 Hypothyroidism, unspecified; Z79.899 Other long term (current) drug therapy
CPT/HCPCS: 80047; 85014; 99283; A9270

== ENCOUNTER 2020-11-04 20:33 | Emergency (ER) | payer OTHER ==
[~2020-11-04] VITALS: Ht 157.5 cm; Wt 51.7 kg
== END 2020-11-04 23:32 | disposition home or self-care (01) ==
LOC: ER 20:33
DX: M79.605 Pain in left leg (principal); M79.604 Pain in right leg; Z79.01 Long term (current) use of anticoagulants; Z79.899 Other long term (current) drug therapy
CPT/HCPCS: 99283

== ENCOUNTER 2020-11-16 02:21 | Emergency (ER) | payer OTHER ==
[~2020-11-16] VITALS: Ht 157.5 cm; Wt 54.4 kg
[2020-11-16 02:54] LABS: BASOPHILS ABSOLUTE AUTO 0.03 K/mm3 (0.00-0.23); BASOPHILS PERCENT AUTO 1 % (0-2); EOSINOPHILS ABSOLUTE AUTO 0.11 K/mm3 (0.00-0.68); EOSINOPHILS PERCENT AUTO 3 % (0-6); Hemoglobin 10.8 g/dL (11.5-16.0); IMMATURE GRAN ABSOLUTE AUTO 0.01 K/mm3 (0.00-0.10); IMMATURE GRAN PERCENT AUTO 0 % (0-1); LYMPHOCYTES ABSOLUTE AUTO 1.95 K/mm3 (0.84-5.20); LYMPHOCYTES PERCENT AUTO 44 % (21-46); MONOCYTES ABSOLUTE AUTO 0.57 K/mm3 (0.16-1.47); MONOCYTES PERCENT AUTO 13 % (4-13); Mean Corpuscular HGB 29.7 pg (26.0-34.0); Mean Corpuscular HGB Conc 32.7 g/dL (31.5-36.5); Mean Corpuscular Volume 91 fL (80-100); NEUTROPHILS ABSOLUTE AUTO 1.78 K/mm3 (1.96-9.15); NEUTROPHILS PERCENT AUTO 40 % (41-73); Platelet Count 133 K/mm3 (150-400); RDW Coefficient Variation 13.2 % (11.7-14.2); Red Blood Cell Count 3.64 M/mm3 (3.80-5.20); White Blood Cell Count 4.45 K/mm3 (4.00-11.30)
[2020-11-16 03:15] LABS: Alanine Aminotransfer (ALT/SGP 15 U/L (12-78); Albumin, Blood 3.6 g/dL (3.4-5.0); Alk Phos 65 U/L (50-136); Anion Gap 5 mmol/L (6-16); Aspartate Aminotrans (AST/SGOT 20 U/L (12-37); Bilirubin, Total 0.5 mg/dL (0.1-1.0); Blood Urea Nitrogen 20 mg/dL (8-24); Bun/Creatinine Ratio 23.4 (12.0-20.0); CO2, Blood 28 mmol/L (21-32); Calcium, Blood 9.2 mg/dL (8.5-10.1); Chloride, Blood 107 mmol/L (98-108); Creatinine, Blood 0.86 mg/dL (0.40-1.00); Globulin, Blood 3.6 g/dL (2.2-4.0); Glomerular Filtration Rate >60 (60-); Glucose, Blood 92 mg/dL (70-99); Potassium, Blood 3.7 mmol/L (3.5-5.5); Sodium, Blood 140 mmol/L (136-145); Total Protein, Blood 7.2 g/dL (6.4-8.2)
== END 2020-11-16 04:27 | disposition home or self-care (01) ==
LOC: ER 02:21
PROVIDERS: Emergency Medicine
DX: M25.572 Pain in left ankle and joints of left foot (principal); M25.571 Pain in right ankle and joints of right foot; R60.0 Localized edema; E78.5 Hyperlipidemia, unspecified; I10 Essential (primary) hypertension; I25.2 Old myocardial infarction; K21.9 Gastro-esophageal reflux disease without esophagitis; E03.9 Hypothyroidism, unspecified; I48.91 Unspecified atrial fibrillation; Z79.899 Other long term (current) drug therapy; Z79.01 Long term (current) use of anticoagulants
CPT/HCPCS: 36415; 71046; 80053; 83880; 85025; 99284-25

== ENCOUNTER 2020-11-27 09:47 | Emergency (ER) | payer OTHER ==
[~2020-11-27] VITALS: Ht 157.5 cm; Wt 54.4 kg
[2020-11-27 11:09] LABS: BASOPHILS ABSOLUTE AUTO 0.04 K/mm3 (0.00-0.23); BASOPHILS PERCENT AUTO 1 % (0-2); EOSINOPHILS ABSOLUTE AUTO 0.14 K/mm3 (0.00-0.68); EOSINOPHILS PERCENT AUTO 3 % (0-6); Hematocrit 36.2 % (33.0-51.0); Hemoglobin 11.6 g/dL (11.5-16.0); IMMATURE GRAN ABSOLUTE AUTO 0.03 K/mm3 (0.00-0.10); IMMATURE GRAN PERCENT AUTO 1 % (0-1); LYMPHOCYTES ABSOLUTE AUTO 1.56 K/mm3 (0.84-5.20); LYMPHOCYTES PERCENT AUTO 32 % (21-46); MONOCYTES ABSOLUTE AUTO 0.51 K/mm3 (0.16-1.47); MONOCYTES PERCENT AUTO 11 % (4-13); Mean Corpuscular HGB 28.6 pg (26.0-34.0); Mean Corpuscular Volume 89 fL (80-100); NEUTROPHILS ABSOLUTE AUTO 2.53 K/mm3 (1.96-9.15); NEUTROPHILS PERCENT AUTO 53 % (41-73); RDW Coefficient Variation 13.1 % (11.7-14.2); RDW Standard Deviation 43.1 fL (35.1-46.3); Red Blood Cell Count 4.06 M/mm3 (3.80-5.20); White Blood Cell Count 4.81 K/mm3 (4.00-11.30)
[2020-11-27 11:12] LABS: Albumin, Blood 3.4 g/dL (3.4-5.0); Albumin/Globulin Ratio 0.9 (0.8-1.8); Bilirubin, Total 0.5 mg/dL (0.1-1.0); Bun/Creatinine Ratio 25.3 (12.0-20.0); Calcium, Blood 8.9 mg/dL (8.5-10.1); Creatinine, Blood 0.95 mg/dL (0.40-1.00); Globulin, Blood 3.9 g/dL (2.2-4.0); Potassium, Blood 3.5 mmol/L (3.5-5.5); Total Protein, Blood 7.3 g/dL (6.4-8.2)
[2020-11-27 11:25] LABS: Mean Platelet Volume 12.4 fL (9.1-12.4); Platelet Count 151 K/mm3 (150-400)
[2020-11-27 11:27] LABS: Source, Urine Clean Catch
[2020-11-27 12:00] LABS: Appearance, Urine Clear (Clear); Bilirubin, Urine Neg (Neg); Blood, Urine Neg (Neg); Color, Urine Yellow (P-Yellow); Glucose Qualitative, Urine Neg (Neg); Ketones, Urine Neg (Neg); Leukocyte Esterase, Urine 1+ (Neg); Nitrite, Urine Neg (Neg); Protein, Urine Neg (Neg); Specific Gravity, Urine 1.015 (1.003-1.022); Urobilinogen, Urine NORM (Normal)
[2020-11-27] MEDS ORDERED: ACET500 PO (12:54)
[2020-11-27] MEDS ORDERED: Voltaren100 GM TOP (12:54)
[2020-11-27 13:02] LABS: White Blood Cells, Urine 0-2 /hpf (0-5)
[2020-11-27 13:03] LABS: Bacteria Not Seen /hpf; Red Blood Cells, Urine Rare /hpf (0-2); Squamous Epithelial Cells Few /hpf (Few); Yeast/Fungi Urine Few /hpf
== END 2020-11-27 13:32 | disposition home or self-care (01) ==
LOC: ER 09:47
PROVIDERS: Emergency Medicine
DX: R10.30 Lower abdominal pain, unspecified (principal); E78.5 Hyperlipidemia, unspecified; I25.2 Old myocardial infarction; I10 Essential (primary) hypertension; K21.9 Gastro-esophageal reflux disease without esophagitis; I48.91 Unspecified atrial fibrillation; Z79.01 Long term (current) use of anticoagulants
CPT/HCPCS: 80053; 81001; 83605; 85025; 87086; 93005; 93010; 99284-25; A9270

== ENCOUNTER 2020-12-28 09:53 | Day surgery (SDC) | payer OTHER ==
[~2020-12-28] VITALS: Ht 157.5 cm; Wt 54.0 kg
[~2020-12-28 09:53] MED LIST changes: +ACET500 PO; +Voltaren100 GM TOP
[2020-12-28] MEDS ORDERED: C COMPLEX1000 M1 PO (10:33)
[2020-12-28] MEDS ORDERED: TRAM50 PO (10:39)
[2020-12-28] MEDS ORDERED: CALCIUM CARBON500 M1 PO (10:43)
[2020-12-28] MEDS ORDERED: PREMARIN TD (10:44)
[2020-12-28] MEDS ORDERED: FISH OIL 1,2001 EAC7 PO (10:45)
[2020-12-28] MEDS ORDERED: VITAMIN D31000 UNI1 PO (10:46)
--- NOTE | 2020-12-28 14:00 | NUR ---
GROIN SITE CHECKED-HEMATOMA NOTED IN THE SAME AREA PREVIOUS HEMATOMA WAS PRESENT. PRESSURE WAS HELD FOR 10 MIN-HEMATOMA RESOLVED-SITE CDI.
--- NOTE | 2020-12-28 15:35 | NUR ---
ASSUMED CARE OF PT. PT AWAKE AND CONVERSING APPROPRIATELY; DENIES PAIN POST PROCEDURE. MONITOR AFIB 70-80'S, B/P 128/56, AFEBRILE, SPO2 95% RA. L GROIN NO SWELLING/HEMATOMA, TEGADERM DRSG INTACT; ANGIO SEAL DEPLOYED, PULSES RLE: DOP X 2, LLE PT DOP. R PT NO SWELLING/HEMATOMA, VON AND TEGADERM DRSG INTACT, DRAINAGE W/I MAPPING. PT'S FAMILY UPDATED WITH PT'S CONSENT.
--- NOTE | 2020-12-28 16:45 | NUR ---
PT'S HOB ELEVATED TO 30 DEGREES, SITE UNCHANGED; TOOK LUNCH WITHOUT ISSUE.
--- NOTE | 2020-12-28 17:20 | NUR ---
PT AMB TO BATHROOM, SITE UNCHANGED. PT DRESSED SELF WITHOUT ISSUE, SITE UNCHANGED; IV REMOVED-CANNULA INTACT.
--- NOTE | 2020-12-28 17:35 | NUR ---
PT AND NIECE RECEIVED DISCHARGE INSTRUCTIONS, MED LIST AND AFTER CARE INSTRUCTIONS; VERBALIZED GOOD UNDERSTANDING. PT LEFT FACILITY VIA W/C, CONDITION STABLE.
== END 2020-12-28 23:33 | disposition home or self-care (01) ==
LOC: MHTC 09:53
DX: I70.213 Atherosclerosis of native arteries of extremities with intermittent claudication, bilateral legs (principal); I70.1 Atherosclerosis of renal artery; I65.23 Occlusion and stenosis of bilateral carotid arteries; I48.91 Unspecified atrial fibrillation; I25.10 Atherosclerotic heart disease of native coronary artery without angina pectoris; E78.5 Hyperlipidemia, unspecified; K21.9 Gastro-esophageal reflux disease without esophagitis; E03.9 Hypothyroidism, unspecified
CPT/HCPCS: 37227; 37228; 37232; 75625; 75716; 75774; 76937; 99152; 99153; C1714; C1725; C1760; C1769; C1874; C1887; C1894; C2623; J1265; J2250; J3010; J7030; J7050; Q9967

== ENCOUNTER 2020-12-30 18:34 | Emergency (ER) | payer OTHER ==
[~2020-12-30] VITALS: Ht 157.5 cm; Wt 53.5 kg
[~2020-12-30 18:34] MED LIST changes: +C COMPLEX1000 M1 PO; +CALCIUM CARBON500 M1 PO; +FISH OIL 1,2001 EAC7 PO; +PREMARIN TD; +VITAMIN D31000 UNI1 PO
[2020-12-30 19:10] LABS: BASOPHILS ABSOLUTE AUTO 0.01 K/mm3 (0.00-0.23); BASOPHILS PERCENT AUTO 0 % (0-2); EOSINOPHILS PERCENT AUTO 2 % (0-6); Hematocrit 31.9 % (33.0-51.0); Hemoglobin 10.2 g/dL (11.5-16.0); IMMATURE GRAN ABSOLUTE AUTO 0.01 K/mm3 (0.00-0.10); IMMATURE GRAN PERCENT AUTO 0 % (0-1); LYMPHOCYTES ABSOLUTE AUTO 1.75 K/mm3 (0.84-5.20); LYMPHOCYTES PERCENT AUTO 28 % (21-46); MONOCYTES ABSOLUTE AUTO 1.09 K/mm3 (0.16-1.47); MONOCYTES PERCENT AUTO 17 % (4-13); Mean Corpuscular HGB 26.8 pg (26.0-34.0); Mean Corpuscular Volume 84 fL (80-100); Mean Platelet Volume 12.5 fL (9.1-12.4); NEUTROPHILS ABSOLUTE AUTO 3.39 K/mm3 (1.96-9.15); NEUTROPHILS PERCENT AUTO 53 % (41-73); Platelet Count 146 K/mm3 (150-400); RDW Coefficient Variation 14.3 % (11.7-14.2); RDW Standard Deviation 43.5 fL (35.1-46.3); White Blood Cell Count 6.35 K/mm3 (4.00-11.30)
[2020-12-30 19:43] LABS: Albumin, Blood 3.3 g/dL (3.4-5.0); Albumin/Globulin Ratio 0.8 (0.8-1.8); Bilirubin, Total 0.6 mg/dL (0.1-1.0); Bun/Creatinine Ratio 23.8 (12.0-20.0); Calcium, Blood 8.9 mg/dL (8.5-10.1); Creatinine, Blood 1.05 mg/dL (0.40-1.00); Potassium, Blood 3.7 mmol/L (3.5-5.5); Total Protein, Blood 7.3 g/dL (6.4-8.2); Troponin I 0.019 ng/mL (0.000-0.040)
== END 2020-12-30 22:09 | disposition home or self-care (01) ==
LOC: ER 18:34
PROVIDERS: Emergency Medicine
DX: R10.13 Epigastric pain (principal); I48.20 Chronic atrial fibrillation, unspecified; I10 Essential (primary) hypertension; E03.9 Hypothyroidism, unspecified; K21.9 Gastro-esophageal reflux disease without esophagitis; Z95.1 Presence of aortocoronary bypass graft; Z79.01 Long term (current) use of anticoagulants; Z79.899 Other long term (current) drug therapy
CPT/HCPCS: 71045; 80053; 83880; 84484; 85025; 93005; 93010; 99285-25; A9270

== ENCOUNTER 2021-05-04 08:27 | Day surgery (SDC) | payer OTHER ==
[~2021-05-04] VITALS: Ht 165.1 cm; Wt 56.7 kg
[~2021-05-04 08:27] MED LIST changes: +ALMACONE SUSPE355 ML PO; +Acetaminophen325 M1 PO; +CENTRUM SILVER WOMEN PO; +FAMO20 PO; +POTA10T PO; +PROMETHAZINE12.5 M1 PO; +TOCO1000; +VITAMIN D3 PO; +Vitamin B-121000 MCG PO
[2021-05-04] MEDS ORDERED: LIVALO4 MG PO (09:43)
--- NOTE | 2021-05-04 10:35 | NUR ---
05/04/21 1035 [address] USED PER ORDER BY DR WATKINS CONTRACT TO VERIFY PLACEMENT DURING PROCEDURE.
== END 2021-05-04 11:02 | disposition home or self-care (01) ==
LOC: ORSCSDS 08:27
PROVIDERS: Orthopaedic Surgery
PROC: 3E0R33Z Introduction of Anti-inflammatory into Spinal Canal, Percutaneous Approach (ICD-10-PCS; principal; 2021-05-04 10:00)
DX: M54.16 Radiculopathy, lumbar region (principal); M47.816 Spondylosis without myelopathy or radiculopathy, lumbar region; M48.061 Spinal stenosis, lumbar region without neurogenic claudication; I10 Essential (primary) hypertension; I25.10 Atherosclerotic heart disease of native coronary artery without angina pectoris; E78.00 Pure hypercholesterolemia, unspecified; I48.91 Unspecified atrial fibrillation; G47.33 Obstructive sleep apnea (adult) (pediatric); E78.5 Hyperlipidemia, unspecified; K21.9 Gastro-esophageal reflux disease without esophagitis; I21.9 Acute myocardial infarction, unspecified; I25.2 Old myocardial infarction; Z79.82 Long term (current) use of aspirin; Z79.01 Long term (current) use of anticoagulants; Z79.899 Other long term (current) drug therapy
CPT/HCPCS: J1040

== ENCOUNTER 2021-06-20 16:35 | Observation (INO) | payer OTHER ==
[~2021-06-20] VITALS: Ht 157.5 cm; Wt 56.3 kg
[2021-06-20 17:28] LABS: Albumin, Blood 3.5 g/dL (3.4-5.0); Albumin/Globulin Ratio 1.1 (0.8-1.8); Bilirubin, Total 0.4 mg/dL (0.1-1.0); Bun/Creatinine Ratio 14.2 (12.0-20.0); Calcium, Blood 9.4 mg/dL (8.5-10.1); Creatinine, Blood 0.91 mg/dL (0.40-1.00); Globulin, Blood 3.2 g/dL (2.2-4.0); Potassium, Blood 3.4 mmol/L (3.5-5.5); Total Protein, Blood 6.7 g/dL (6.4-8.2)
[2021-06-20 17:34] LABS: BASOPHILS ABSOLUTE AUTO 0.03 K/mm3 (0.00-0.23); BASOPHILS PERCENT AUTO 1 % (0-2); EOSINOPHILS ABSOLUTE AUTO 0.06 K/mm3 (0.00-0.68); EOSINOPHILS PERCENT AUTO 1 % (0-6); Hematocrit 26.9 % (33.0-51.0); IMMATURE GRAN ABSOLUTE AUTO 0.01 K/mm3 (0.00-0.10); IMMATURE GRAN PERCENT AUTO 0 % (0-1); LYMPHOCYTES ABSOLUTE AUTO 2.03 K/mm3 (0.84-5.20); LYMPHOCYTES PERCENT AUTO 44 % (21-46); MONOCYTES ABSOLUTE AUTO 0.52 K/mm3 (0.16-1.47); MONOCYTES PERCENT AUTO 11 % (4-13); Mean Corpuscular HGB 21.6 pg (26.0-34.0); Mean Corpuscular HGB Conc 29.7 g/dL (31.5-36.5); Mean Corpuscular Volume 73 fL (80-100); Mean Platelet Volume 11.3 fL (9.1-12.4); NEUTROPHILS ABSOLUTE AUTO 1.93 K/mm3 (1.96-9.15); NEUTROPHILS PERCENT AUTO 42 % (41-73); Platelet Count 130 K/mm3 (150-400); RDW Standard Deviation 44.1 fL (35.1-46.3); White Blood Cell Count 4.58 K/mm3 (4.00-11.30)
[2021-06-20 22:22] LABS: Hematocrit 28.5 % (33.0-51.0); Hemoglobin 8.5 g/dL (11.5-16.0); Mean Corpuscular HGB 21.7 pg (26.0-34.0); Mean Corpuscular HGB Conc 29.8 g/dL (31.5-36.5); Mean Corpuscular Volume 73 fL (80-100); Mean Platelet Volume 11.2 fL (9.1-12.4); Platelet Count 132 K/mm3 (150-400); RDW Standard Deviation 43.8 fL (35.1-46.3); Red Blood Cell Count 3.92 M/mm3 (3.80-5.20); White Blood Cell Count 4.58 K/mm3 (4.00-11.30)
[2021-06-20 23:38] LABS: International Normalized Ratio 1.13; Prothrombin Time Results 11.8 Sec (9.7-11.5)
[2021-06-21 00:03] LABS: Influenza A, PCR NEGATIVE (NEGATIVE); Influenza B, PCR NEGATIVE (NEGATIVE); Resp Syncytial Virus, PCR NEGATIVE (NEGATIVE); SARS-Cov-2 (COVID-19) PCR, MMC NEGATIVE (NEGATIVE)
[2021-06-21] MEDS ORDERED: ZOLP10 PO (01:27)
--- NOTE | 2021-06-21 01:39 | NUR ---
CALLED DR CARMONA REGARDING PT'S ELEVATED BP. ORDERS WILL BE ENTERED BY DR CARMONA.
[2021-06-21 01:41] LABS: Hematocrit 26.7 % (33.0-51.0); Hemoglobin 7.9 g/dL (11.5-16.0)
--- NOTE | 2021-06-21 05:58 | NUR ---
SHIFT SUMMARY PT IS ALERT AND ORIENTED SOMETIMES FORGETFUL. DENIES CHEST PAIN/PRESSURE. BP HAS BEEN ELEVATED. DR CARMONA WAS CALLED AND FURTHER ORDERS WERE ENTERED. OTHER VITALS ARE STABLE AND IS ON ROOM AIR WITH SATS ABOVE 92%. PT REPORTS ABDOMINAL PAIN. PT HAS NOT HAD A BM ON ED NOR ON UNIT. PT REPORTS ABDOMINAL PAIN AT TIMES. PT REFUSED OFFER TO CALL PAIN MEDICATION. PT IS SITTING IN CHAIR REFUSES BED BECAUSE IT IS UNCOMFORTABLE AND IS REQUESTING NEW BED. STATED THAT "IF WOULD HAVE KNOW SHE HAD SHE HAD A BED LIKE THAT SHE WOULD GO HOME." CALL LIGHT IS WITHIN REACH.
--- NOTE | 2021-06-21 06:40 | NUR ---
PT REQUESTED TYLENOL. DR CARMONA CALLED. ORDER ENTERED.
[2021-06-21 06:59] LABS: Hematocrit 31.2 % (33.0-51.0); Hemoglobin 9.3 g/dL (11.5-16.0); Mean Corpuscular HGB 21.6 pg (26.0-34.0); Mean Corpuscular HGB Conc 29.8 g/dL (31.5-36.5); Mean Corpuscular Volume 73 fL (80-100); Mean Platelet Volume 11.4 fL (9.1-12.4); Platelet Count 173 K/mm3 (150-400); RDW Coefficient Variation 17.2 % (11.7-14.2); RDW Standard Deviation 43.7 fL (35.1-46.3); White Blood Cell Count 6.57 K/mm3 (4.00-11.30)
[2021-06-21 07:15] LABS: Anion Gap 7 mmol/L (6-16); Blood Urea Nitrogen 12 mg/dL (8-24); Bun/Creatinine Ratio 14.6 (12.0-20.0); CO2, Blood 23 mmol/L (21-32); Calcium, Blood 9.5 mg/dL (8.5-10.1); Chloride, Blood 111 mmol/L (98-108); Creatinine, Blood 0.82 mg/dL (0.40-1.00); Glomerular Filtration Rate >60 (60-); Glucose, Blood 133 mg/dL (70-99); Potassium, Blood 3.4 mmol/L (3.5-5.5); Sodium, Blood 141 mmol/L (136-145)
[2021-06-21 10:27] LABS: Hematocrit 28.4 % (33.0-51.0); Hemoglobin 8.4 g/dL (11.5-16.0)
--- NOTE | 2021-06-21 17:16 | NUR ---
SHIFT SUMMARY PT A&Ox4; ANXIOUS BUT COOPERATIVE WITH CARE. PT UP IN CHAIR DURING SHIFT, BATHROOM WITH SBA AND CANE. PT REPORTS PAIN TO LOWER BACK, ABD, BLE; MEDICATED PER ORDERS. PT REPORTS SOB WITH SEVERE ABD PAIN, BUT HAS DENIED SOB T/O SHIFT. SPO2 >94% ON RA T/O SHIFT. PT DENIES CHEST PAIN, NAUSEA AND DIZZINESS. BM DURING SHIFT BROWN WITH RED STREAKS, DR NOTIFIED. PT RECEIVING IV FLUIDS PER ORDER. VSS. NO OTHER ACUTE CHANGES NOTED. WILL CONTINUE TO MONITOR UNTIL REPORT GIVEN TO ONCOMING RN.
--- NOTE | 2021-06-21 21:28 | NUR ---
ASSUMED CARE OF PATIENT AT APPROXIMATELY 1905 FROM MARI Multani RN. PATIENT ALERT AND ORIENTED X4. PATIENT REPORTS PAIN IN HER LEGS/FEET/ANKLES, ABODMEN, AND BACK; PATIENT REPORTS PAIN WAS WORSE AT HOME; MEDICATED PER EMAR. PATIENT REPORTS SHE HASNT SLEPT SINCE YESTERDAY; CURRENTLY SLEEPING IN RECLINER DUE TO BED BEING TOO SOFT. SBA TO BATHROOM W/ CANE. SR ON TELE; OXYGEN SATURATION ABOVE 90% ON ROOM AIR. MEDICAL STATUS. PATIENT DENIES NUMBESS, TINGLING, DIZZINESS, AND NAUSEA. PIV S/L.
[2021-06-22 03:51] LABS: BASOPHILS ABSOLUTE AUTO 0.03 K/mm3 (0.00-0.23); BASOPHILS PERCENT AUTO 1 % (0-2); EOSINOPHILS ABSOLUTE AUTO 0.11 K/mm3 (0.00-0.68); EOSINOPHILS PERCENT AUTO 3 % (0-6); Hematocrit 28.8 % (33.0-51.0); Hemoglobin 8.2 g/dL (11.5-16.0); IMMATURE GRAN ABSOLUTE AUTO 0.01 K/mm3 (0.00-0.10); IMMATURE GRAN PERCENT AUTO 0 % (0-1); LYMPHOCYTES ABSOLUTE AUTO 1.62 K/mm3 (0.84-5.20); LYMPHOCYTES PERCENT AUTO 41 % (21-46); MONOCYTES ABSOLUTE AUTO 0.58 K/mm3 (0.16-1.47); MONOCYTES PERCENT AUTO 15 % (4-13); Mean Corpuscular HGB 21.1 pg (26.0-34.0); Mean Corpuscular HGB Conc 28.5 g/dL (31.5-36.5); Mean Corpuscular Volume 74 fL (80-100); Mean Platelet Volume 11.5 fL (9.1-12.4); NEUTROPHILS ABSOLUTE AUTO 1.64 K/mm3 (1.96-9.15); NEUTROPHILS PERCENT AUTO 41 % (41-73); Platelet Count 117 K/mm3 (150-400); RDW Coefficient Variation 17.5 % (11.7-14.2); RDW Standard Deviation 45.7 fL (35.1-46.3); Red Blood Cell Count 3.89 M/mm3 (3.80-5.20); White Blood Cell Count 3.99 K/mm3 (4.00-11.30)
[2021-06-22 04:09] LABS: Albumin, Blood 3.4 g/dL (3.4-5.0); Anion Gap 5 mmol/L (6-16); Blood Urea Nitrogen 16 mg/dL (8-24); Bun/Creatinine Ratio 18.1 (12.0-20.0); CO2, Blood 27 mmol/L (21-32); Calcium, Blood 8.8 mg/dL (8.5-10.1); Chloride, Blood 110 mmol/L (98-108); Creatinine, Blood 0.89 mg/dL (0.40-1.00); Glomerular Filtration Rate >60 (60-); Glucose, Blood 93 mg/dL (70-99); Phosphorus, Blood 4.1 mg/dL (2.5-4.9); Potassium, Blood 3.4 mmol/L (3.5-5.5); Sodium, Blood 142 mmol/L (136-145)
[2021-06-22] MEDS ORDERED: PANT40 PO (12:33)
[2021-06-22] MEDS ORDERED: ONDA4 PO (12:35)
[2021-06-22] MEDS ORDERED: TRAM50 PO (12:36)
--- NOTE | 2021-06-22 13:39 | NUR ---
Spiritual care visit conducted. Pt is sitting on a chair and alert. Pt tells me about her four grown children tand the states they are living, about her medical issues and the plans going forward and how she remains hopeful inspite of the many setbacks. I provide therapeutic listening, companionship and and a calming presence. Patient responds well and voices appreciation for the visit.
--- NOTE | 2021-06-22 15:06 | NUR ---
Per Dr. Keyur Araya discharge appropriate. Patient does not oppose discharge. Date of discharge: 06/22/2021 Date of admission: 06/21/2021 Provisional diagnosis at time of admission: Melena Final Diagnosis at time of discharge: Melena Location: Patient is discharged home to his residence: [facility] [place] [id number] Transportation provided by: [facility] DME Ordered: None needed; patient is independent and able to complete ADL's without assistance (uses a cane). Follow-ups needed: Patient is scheduled with Dr. Gudino for endoscopy procedure on 06/27/21 @ 1230. Transportation for 06/27 appointment coordinated/scheduled through [facility] per patient request. [facility] ZULMA will contact patient to schedule. Reinforced to patient the need to schedule PCP follow up after discharge from hospital; and telehealth/phone call is an option. Confirmed numbers: Patient: [phone] Niece/nephew Rebecca & Arian: [phone] Provider/PCP: Jasiel Fernandez MD When: WITHIN 1 WEEK Specialty: GI When: 06/27/21 @12:30 Comment: Patient lives independently. Children live out of state ([place], [place]). Patient is moving to [place] in August with one of her daughters who is relocating from [place] to [place]. Patient is in the process of packing and selling her home for the move. She has a niece and nephew who live in [place]. 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 Patient is not a . Patient has a stable support system. No barriers to discharge.
[2021-06-22 16:15] LABS: Influenza A, PCR NEGATIVE (NEGATIVE); Influenza B, PCR NEGATIVE (NEGATIVE); Resp Syncytial Virus, PCR NEGATIVE (NEGATIVE); SARS-Cov-2 (COVID-19) PCR, MMC NEGATIVE (NEGATIVE)
--- NOTE | 2021-06-22 17:15 | NUR ---
DISCHARGE SUMMARY PT A&Ox3; ANXIOUS BUT COOPERATIVE WITH CARE. PT UP IN CHAIR DURING SHIFT. UP WITH SBA WITH CANE. PT REPORTS PAIN TO BLE/BACK/ABD; MEDICATED PRIOR TO SHIFT, DENEIS NEEDS FOR MEDICATION PRIOR TO DISCHARGE. PT DENIES CHEST PAIN, SOB, NAUSEA AND DIZZINESS. NO BM DURING SHIFT. ELEVATED BP NOTED THIS AFTERNOON, PT REPORTS FEELING STRESS AND ANXIOUS, USED THERAPUTIC LISTENING AND RELAXATION, BP TRENDED DOWN. OTHER VSS. NO OTHER ACUTE CHANGES NOTED. EDCUATED PT ON DISCHARGE INSTRUCTIONS, FOLLOW UP APPOINTMENT AND PROCEDURES, AND PRESCRIPTIONS. PRESCRIPTIONS CALLED TO [facility] PER PT REQUEST. COVID TEST COMPLETED PRIOR TO D/C FOR PROCEDURE PLANNED FOR TUESDAY 06/27. INFO PROVIDED FROM LEASING SPECIALIST REGARDING PREP FOR PROCEDURE. PT LEFT ROOM VIA WHEELCHAIR AT APPRXO 1350.
== END 2021-06-22 14:00 | disposition home or self-care (01) ==
LOC: ER 16:35 → PCU 16:36 → ER 06-21 00:16 → PCU 06-21 00:35 → ER 06-21 00:35 → PCU 06-21 00:35
PROVIDERS: Emergency Medicine; Family Medicine; Student in an Organized Health Care Education/Training Program; ADMIT Internal Medicine
DX: K92.1 Melena (principal); R10.13 Epigastric pain; I25.2 Old myocardial infarction; I10 Essential (primary) hypertension; I25.10 Atherosclerotic heart disease of native coronary artery without angina pectoris; D62 Acute posthemorrhagic anemia; K21.9 Gastro-esophageal reflux disease without esophagitis; E03.9 Hypothyroidism, unspecified; I48.91 Unspecified atrial fibrillation; I73.9 Peripheral vascular disease, unspecified; Z95.1 Presence of aortocoronary bypass graft; Z95.820 Peripheral vascular angioplasty status with implants and grafts; Z20.822 Contact with and (suspected) exposure to COVID-19
CPT/HCPCS: 0241U; 36415; 74177; 80048; 80053; 80069; 83690; 84484; 85014; 85018; 85025; 85027; 85610; 93005; 93010; 96375; 96376; A9270; C9113; G0378; J0360; Q9967

== ENCOUNTER 2021-06-23 11:07 | Emergency (ER) | payer OTHER ==
[~2021-06-23] VITALS: Ht 157.5 cm; Wt 59.9 kg
[~2021-06-23 11:07] MED LIST changes: +ONDA4 PO
[2021-06-23 12:20] LABS: Albumin, Blood 3.3 g/dL (3.4-5.0); Albumin/Globulin Ratio 1.1 (0.8-1.8); Bilirubin, Total 0.7 mg/dL (0.1-1.0); Bun/Creatinine Ratio 14.5 (12.0-20.0); Creatinine, Blood 0.97 mg/dL (0.40-1.00); Globulin, Blood 3.1 g/dL (2.2-4.0); Potassium, Blood 4.1 mmol/L (3.5-5.5); Total Protein, Blood 6.4 g/dL (6.4-8.2)
[2021-06-23 12:24] LABS: BASOPHILS ABSOLUTE AUTO 0.03 K/mm3 (0.00-0.23); BASOPHILS PERCENT AUTO 1 % (0-2); EOSINOPHILS ABSOLUTE AUTO 0.06 K/mm3 (0.00-0.68); EOSINOPHILS PERCENT AUTO 1 % (0-6); Hemoglobin 8.1 g/dL (11.5-16.0); IMMATURE GRAN ABSOLUTE AUTO 0.03 K/mm3 (0.00-0.10); IMMATURE GRAN PERCENT AUTO 1 % (0-1); LYMPHOCYTES PERCENT AUTO 27 % (21-46); MONOCYTES PERCENT AUTO 12 % (4-13); Mean Corpuscular HGB 21.8 pg (26.0-34.0); Mean Corpuscular Volume 73 fL (80-100); NEUTROPHILS ABSOLUTE AUTO 2.82 K/mm3 (1.96-9.15); NEUTROPHILS PERCENT AUTO 58 % (41-73); RDW Coefficient Variation 17.2 % (11.7-14.2); RDW Standard Deviation 43.9 fL (35.1-46.3); Red Blood Cell Count 3.71 M/mm3 (3.80-5.20); White Blood Cell Count 4.84 K/mm3 (4.00-11.30)
[2021-06-23 12:26] LABS: Mean Platelet Volume 11.5 fL (9.1-12.4)
[2021-06-23 12:57] LABS: Platelet Count 100 K/mm3 (150-400)
--- NOTE | 2021-06-23 14:12 | NUR ---
Spiritual care visit conducted. Patient is sitting up in bed and immediately tells me about the events that led to her ER visit. She tells me about her fear to return home due to her stated fall risk. She talks about her grown kids and their support from a distance and her Congregation Anabaptist asia. I provide anxiety containment, gentle encouragement and a calming presence. Pt shows signs of increased peace. I will continue to remain available to pt should she be admitted to the hospital.
== END 2021-06-23 18:23 | disposition home or self-care (01) ==
LOC: ER 11:07
PROVIDERS: Emergency Medicine
DX: D64.9 Anemia, unspecified (principal); I11.0 Hypertensive heart disease with heart failure; I50.9 Heart failure, unspecified; I25.2 Old myocardial infarction; I25.10 Atherosclerotic heart disease of native coronary artery without angina pectoris; E78.00 Pure hypercholesterolemia, unspecified; I48.91 Unspecified atrial fibrillation; E03.9 Hypothyroidism, unspecified; Z79.899 Other long term (current) drug therapy; Z88.8 Allergy status to other drugs, medicaments and biological substances
CPT/HCPCS: 71045; 80053; 83690; 83880; 84484; 85025; 93005; 93010; 96374; 99284-25; A9270; J2405; J7030

== ENCOUNTER 2021-07-12 09:14 | Inpatient (IN) | payer OTHER ==
[~2021-07-12] VITALS: Ht 157.5 cm; Wt 60.8 kg
[2021-07-12 10:36] LABS: Anion Gap 9 mmol/L (6-16); Blood Urea Nitrogen 16 mg/dL (8-24); Bun/Creatinine Ratio 19.5 (12.0-20.0); CO2, Blood 24 mmol/L (21-32); Chloride, Blood 111 mmol/L (98-108); Creatinine, Blood 0.82 mg/dL (0.40-1.00); Glomerular Filtration Rate >60 (60-); Glucose, Blood 102 mg/dL (70-99); Potassium, Blood 3.4 mmol/L (3.5-5.5); Sodium, Blood 144 mmol/L (136-145)
[2021-07-12 11:45] LABS: BASOPHILS ABSOLUTE AUTO 0.03 K/mm3 (0.00-0.23); BASOPHILS PERCENT AUTO 1 % (0-2); EOSINOPHILS ABSOLUTE AUTO 0.06 K/mm3 (0.00-0.68); EOSINOPHILS PERCENT AUTO 2 % (0-6); Hematocrit 29.4 % (33.0-51.0); Hemoglobin 8.8 g/dL (11.5-16.0); IMMATURE GRAN ABSOLUTE AUTO 0.01 K/mm3 (0.00-0.10); IMMATURE GRAN PERCENT AUTO 0 % (0-1); LYMPHOCYTES ABSOLUTE AUTO 1.48 K/mm3 (0.84-5.20); LYMPHOCYTES PERCENT AUTO 39 % (21-46); MONOCYTES ABSOLUTE AUTO 0.32 K/mm3 (0.16-1.47); MONOCYTES PERCENT AUTO 9 % (4-13); Mean Corpuscular HGB 22.3 pg (26.0-34.0); Mean Corpuscular HGB Conc 29.9 g/dL (31.5-36.5); Mean Corpuscular Volume 75 fL (80-100); Mean Platelet Volume 10.9 fL (9.1-12.4); NEUTROPHILS ABSOLUTE AUTO 1.88 K/mm3 (1.96-9.15); NEUTROPHILS PERCENT AUTO 50 % (41-73); Platelet Count 139 K/mm3 (150-400); RDW Coefficient Variation 21.2 % (11.7-14.2); RDW Standard Deviation 53.5 fL (35.1-46.3); Red Blood Cell Count 3.94 M/mm3 (3.80-5.20); White Blood Cell Count 3.78 K/mm3 (4.00-11.30)
[2021-07-12 12:04] LABS: International Normalized Ratio 1.11; Prothrombin Time Results 11.6 Sec (9.7-11.5)
[2021-07-12 13:09] LABS: Influenza A, PCR NEGATIVE (NEGATIVE); Influenza B, PCR NEGATIVE (NEGATIVE); Resp Syncytial Virus, PCR NEGATIVE (NEGATIVE); SARS-Cov-2 (COVID-19) PCR, MMC NEGATIVE (NEGATIVE)
--- NOTE | 2021-07-12 17:15 | NUR ---
SHIFT SUMMARY PATIENT ADMITTED FROM ER AT 1410. PATIENT SETTLED INTO ROOM. PATIENT MEDICATED FOR PAIN X1. PATIENT DENIES NAUSEA AND SHORTNESS OF BREATH. PATIENT WILL BE NPO AT MIDNIGHT FOR POSSIBLE REVASC OF LEGS TOMORROW. PATIENT IS ON TELE, SR AT 67 PER RADIOLOGIC TECHNOLOGY TEACHER. PATIENT IS A SBA FOR TRANSFERS. PATIENT HAS HEPARIN DRIP. PATIENT ATE DINNER WELL. PATIENT IS PLEASANT AND COOPERATIVE WITH CARE.
[2021-07-13 02:26] LABS: BASOPHILS ABSOLUTE AUTO 0.02 K/mm3 (0.00-0.23); BASOPHILS PERCENT AUTO 1 % (0-2); EOSINOPHILS ABSOLUTE AUTO 0.09 K/mm3 (0.00-0.68); EOSINOPHILS PERCENT AUTO 2 % (0-6); Hematocrit 28.3 % (33.0-51.0); Hemoglobin 8.3 g/dL (11.5-16.0); IMMATURE GRAN ABSOLUTE AUTO 0.01 K/mm3 (0.00-0.10); IMMATURE GRAN PERCENT AUTO 0 % (0-1); LYMPHOCYTES ABSOLUTE AUTO 2.12 K/mm3 (0.84-5.20); LYMPHOCYTES PERCENT AUTO 55 % (21-46); MONOCYTES ABSOLUTE AUTO 0.36 K/mm3 (0.16-1.47); MONOCYTES PERCENT AUTO 9 % (4-13); Mean Corpuscular HGB 22.2 pg (26.0-34.0); Mean Corpuscular HGB Conc 29.3 g/dL (31.5-36.5); Mean Corpuscular Volume 76 fL (80-100); Mean Platelet Volume 11.4 fL (9.1-12.4); NEUTROPHILS ABSOLUTE AUTO 1.24 K/mm3 (1.96-9.15); NEUTROPHILS PERCENT AUTO 32 % (41-73); Platelet Count 124 K/mm3 (150-400); RDW Coefficient Variation 21.4 % (11.7-14.2); RDW Standard Deviation 55.5 fL (35.1-46.3); Red Blood Cell Count 3.74 M/mm3 (3.80-5.20); White Blood Cell Count 3.84 K/mm3 (4.00-11.30)
[2021-07-13 02:46] LABS: Albumin, Blood 3.2 g/dL (3.4-5.0); Albumin/Globulin Ratio 1.1 (0.8-1.8); Bilirubin, Total 0.4 mg/dL (0.1-1.0); Bun/Creatinine Ratio 18.9 (12.0-20.0); Calcium, Blood 8.1 mg/dL (8.5-10.1); Creatinine, Blood 0.9 mg/dL (0.40-1.00); Potassium, Blood 3.4 mmol/L (3.5-5.5); Total Protein, Blood 6.2 g/dL (6.4-8.2)
--- NOTE | 2021-07-13 13:54 | NUR ---
TRANSFER PATIENT WENT TO INSTRUCTOR PROGRAMMABLE CONTROLLERS AT 1315. PATIENT GOING TO PCU 14 AFTER PROCEDURE. BELONGINGS SENT TO NEW ROOM. PATIENT PURSE SENT WITH PATIENT TO INSTRUCTOR PROGRAMMABLE CONTROLLERS. REPORT GIVEN TO JAXON MCINTOSH.
--- NOTE | 2021-07-13 16:17 | NUR ---
UPDATE Pt arrived to room from the bottle label inspector. She is confused and reports that her mouth is so dry that it is hard to breath but she is talking and her sats are in the high 90's on room air. Oral care was done and sips of water were offered. She repors that she feels confused and per report from the medical floor nurse she was not confused earlier this morning. The charge nurse is aware. Dr Beach does not want the heparin restarted until 1800 so the pharmacy was notified of that order. She has a left femoral access site with a clear dressing and the sire is free from vleeding and is soft and nontender. Bed alarm is on for pt safety.
--- NOTE | 2021-07-13 19:00 | NUR ---
ASSUMPTION OF CARE PT AWAKE LYING IN BED. C/O NAUSEA BUT STS ZOFRAN FROM EARLIER IS STARTING TO HELP. SHE IS RECEIVING HEPARIN 14UNITS/KG/HR. SHE IS ALERT AND ORIENTED, COOPERATIVE WITH CARE AT THIS TIME. L GROIN SITE HAS TEGADERM CHG IN PLACE THAT IS C/D/I. SURROUNDING TISSUE IS SOFT, NO SWELLING OR BLEEDING. HER SPO2 WAS <90% SO SHE IS NOW ON 3L NC. SEE SHIFT ASSESSMENT.
--- NOTE | 2021-07-14 01:58 | NUR ---
UPDATE PT HYPERTENSIVE THROUGHOUT NIGHT. VERIFIED CUFF PLACEMENT AND ACCURACY. PT DENIES PAIN AND SOB. CALL PLACED TO DR CARMONA, ORDER RECEIVED FOR HYDRALAZINE. CALL RECEIVED FROM PHARMACY TO PLACE HEPARIN ON STANDBY FOR 1HR, THEN RESTART DRIP AT 11UNITS/KG/HR.
--- NOTE | 2021-07-14 05:06 | NUR ---
SHIFT SUMMARY PT HAS SLEPT THROUGH MOST OF NIGHT. SHE WAKES OCCASIONALLY TO USE BEDSIDE COMMODE. SHE IS ALERT AND ORIENTED, COOPERATIVE WITH CARE, AND PLEASANT. SHE IS BACK ON RA WITH SPO2 >93%. HEPARIN CONTINUES TO INFUSE AT 11UNITS/KG/HR AND IVF+KCL INFUSING AT 50ML/HR. SHE HAS DENIED PAIN AND DISCOMFORT THROUGHOUT NIGHT. PT WAS HYPERTENSIVE MAJORITY OF THE NIGHT BUT SBP IS NOW IN 120S. SHE IS CURRENTLY RESTING COMFORTABLY WITH EYES CLOSED.
--- NOTE | 2021-07-14 07:45 | NUR ---
ASSUMPTION OF CARE Pt is awake and a/o x 4. She is talkative and pleasant. She denies any pain but does reports some tingling to her right foot. Her IV fluids are infusing as ordered. She is drinking water and has a good appetite. She reports no nausea this morning. Left groin site is free from bleeding an swelling and is non-tender. She has her call light and personal items within reach and is able to make her needs known.
[2021-07-14 09:25] LABS: Percent Saturation 4.3 % (15.0-50.0)
[2021-07-14 09:48] LABS: Anion Gap 8 mmol/L (6-16); Blood Urea Nitrogen 13 mg/dL (8-24); Bun/Creatinine Ratio 14.7 (12.0-20.0); CO2, Blood 20 mmol/L (21-32); Calcium, Blood 8.5 mg/dL (8.5-10.1); Chloride, Blood 112 mmol/L (98-108); Creatinine, Blood 0.88 mg/dL (0.40-1.00); Glomerular Filtration Rate >60 (60-); Glucose, Blood 161 mg/dL (70-99); Potassium, Blood 3.6 mmol/L (3.5-5.5); Sodium, Blood 140 mmol/L (136-145)
[2021-07-14 10:02] LABS: BASOPHILS ABSOLUTE AUTO 0.02 K/mm3 (0.00-0.23); BASOPHILS PERCENT AUTO 0 % (0-2); EOSINOPHILS ABSOLUTE AUTO 0.01 K/mm3 (0.00-0.68); EOSINOPHILS PERCENT AUTO 0 % (0-6); Hematocrit 25.4 % (33.0-51.0); Hemoglobin 7.4 g/dL (11.5-16.0); IMMATURE GRAN ABSOLUTE AUTO 0.12 K/mm3 (0.00-0.10); IMMATURE GRAN PERCENT AUTO 1 % (0-1); LYMPHOCYTES ABSOLUTE AUTO 0.43 K/mm3 (0.84-5.20); LYMPHOCYTES PERCENT AUTO 4 % (21-46); MONOCYTES ABSOLUTE AUTO 0.55 K/mm3 (0.16-1.47); MONOCYTES PERCENT AUTO 5 % (4-13); Mean Corpuscular HGB 22.8 pg (26.0-34.0); Mean Corpuscular HGB Conc 29.1 g/dL (31.5-36.5); Mean Corpuscular Volume 78 fL (80-100); Mean Platelet Volume 11.5 fL (9.1-12.4); NEUTROPHILS ABSOLUTE AUTO 9.86 K/mm3 (1.96-9.15); NEUTROPHILS PERCENT AUTO 90 % (41-73); Platelet Count 68 K/mm3 (150-400); RDW Coefficient Variation 22.2 % (11.7-14.2); Red Blood Cell Count 3.25 M/mm3 (3.80-5.20); White Blood Cell Count 10.99 K/mm3 (4.00-11.30)
--- NOTE | 2021-07-14 17:22 | NUR ---
SHIFT SUMMARY pT IS A/O X 4 and has no c/o pain. She continued on the heparin gtt until this afternoon when Dr Cope dcd it and she was started on xarelto and plavix as reflected on the EMAR. Her left groin access site has the angioseal CDI with no bruising or bleeding and is soft and nontender. The plan was for her to dc home today but instead she will be leaving tomorrow. DC planning is working with her on getting in home care set up. The pt also has a neighbor friend who is going to help her once she gets home. After speaking with the pt's daughter, the plan is for her to move to [place] to be closer to family to assist her. The pt has been on the phone with friends/family all day. She was able to walk to the bathroom with a FWW and SBA for line management. She is able to make her needs known and does so often. She has her call light and personal items in reach.
--- NOTE | 2021-07-15 06:25 | NUR ---
PATIENT REMAINS ALERT WITH SOME FORGETFULNESS. ABLE TO FOLLOW COMMANDS. C/O GENERALIZED PAIN MEDICATED PER EMAR. NO CHANGES TO LEFT GROIN SITE. SR ON TELE. ROOM AIR. ONE ASSIST TO VOID. PATIENT APEARS TO BE ANXIOUS DISCHARGE TODAY. PATIENT CALLS FREQUENTLY. NO A.M LABS NOTIFY DR. CARMONA. ORDERS RECIEVED.
[2021-07-15 06:31] LABS: BASOPHILS ABSOLUTE AUTO 0.01 K/mm3 (0.00-0.23); BASOPHILS PERCENT AUTO 0 % (0-2); EOSINOPHILS PERCENT AUTO 4 % (0-6); Hematocrit 27.9 % (33.0-51.0); Hemoglobin 8.2 g/dL (11.5-16.0); IMMATURE GRAN ABSOLUTE AUTO 0.02 K/mm3 (0.00-0.10); IMMATURE GRAN PERCENT AUTO 0 % (0-1); LYMPHOCYTES ABSOLUTE AUTO 1.16 K/mm3 (0.84-5.20); LYMPHOCYTES PERCENT AUTO 16 % (21-46); MONOCYTES ABSOLUTE AUTO 0.51 K/mm3 (0.16-1.47); MONOCYTES PERCENT AUTO 7 % (4-13); Mean Corpuscular HGB 22.5 pg (26.0-34.0); Mean Corpuscular HGB Conc 29.4 g/dL (31.5-36.5); Mean Corpuscular Volume 76 fL (80-100); NEUTROPHILS ABSOLUTE AUTO 5.06 K/mm3 (1.96-9.15); NEUTROPHILS PERCENT AUTO 72 % (41-73); Platelet Count 69 K/mm3 (150-400); RDW Coefficient Variation 23.1 % (11.7-14.2); RDW Standard Deviation 61.2 fL (35.1-46.3); Red Blood Cell Count 3.65 M/mm3 (3.80-5.20); White Blood Cell Count 7.06 K/mm3 (4.00-11.30)
--- NOTE | 2021-07-15 08:06 | NUR ---
CARE ASSUMPTION PATIENT IS ALERT AND ORIENTATED X4, BUT IS FORGETFUL. PATIENT MENTIONED WANTING BREAKFAST AND WAS HOPPING FOR OATMEAL, AND THEN A MINUTE LATER WAS TALKING ABOUT WHAT SHE DID THIS AFTERNOON. THIS RN ORIENTATED TO THE TIME OF DAY IT WAS. REGINALDO. PATIENT REPORTS NO CHEST PAIN OR SHORTNES OF BREATH. HEART SOUNDS NORMAL, AND STRONG RADIAL AND PEDIS PULSES. LUNG SOUNDS CLEAR. PATIENT REPORTED PAIN IN HER RIGHT LEG WITH MOVEMENT OR WHEN STANDING ON IT, BUT AT REST NO PAIN. SEE SHIFT ASSESSMENT FOR FULL DETAILS. PATIENT IS NOW SITTING IN HER BEDSIDE CHAIR EATING BREAKFAST. THIS RN INFORMED THE PATIENT OF THE PLAN TO GO HOME, AND PATIENT STATED SHE DIDN'T WANT TO GO HOME BECAUSE SHE HAS PAIN ON HER LEG WHEN WALKING AND NEEDS HELP. THIS RN EDUCATED THAT HOME HEALTH WILL COME BY AND ASSIST HER AND ENSURE SHE HAS PROPER SET UP. THIS RN WILL CONTINUE TO PROVIDE EDUCATION. CALL LIGHT IS WITHIN REACH. WILL CONTINUE TO MONITOR AND PROVIDE CARE.
--- NOTE | 2021-07-15 11:52 | NUR ---
Per Dr. Serna, patient appropriate for discharge. Nieves COATESmultiple pressure riveter operator Nurys Edwards coordinated [facility] plan[facility], and discharge transportation. Cuthbert ZULMA to follow-up with patient and schedule hospital follow-up appointment. Patient's daughter (from [place]) plans to travel to [place] at the end of July to assist the patient in moving to [place] to an assisted living facility.
--- NOTE | 2021-07-15 14:16 | NUR ---
UPDATE PATIENT IS UPSET ABOUT GOING HOME TODAY, STATING SHE STILL HAS LEG PAIN. SHE HAD BEEN MEDICATED PER EMAR AND IS ABLE TO AMBULATE. MD TINOCOYE IN TO SEE PATIENT AND EXPLAINED THAT THE LEG PAIN CAN BE ASSOCIATED WITH THE IMPROVED BLOOD FLOW. PATIENT AT THIS POINT IS HERE FOR US TO MONITOR HER PAIN. SHE HAD BEEN SIGNED OFF AND APPROVED FOR DISCHARGE PER MD AMATO. PATEINNT GETS THINGS MIXED UP AND CONFUSED WITH WHAT THE DOCTOR OR I TELL HER. PATIENT HAS MENTIONED SEVERAL TIMES THAT THEY EITHER MESSED UP THE PROCEDURE, IT WAS FROM THE ANTHESIA, OR SOMETHING ELSE SHE DOESN'T REMEMBER. SHE HAS MENTIONED THIS MULTIPLE TIMES THROUGHOUT THE DAY, IF SHE FORGETS THE FIRST TIME SHE THAT SHE MENTIONS IT. PATIENT STATES SHE IS UNABLE TO GET UP AND WALK DUE TO HER LEG PAIN. PATIENT HAS GOTTEN TWICE TODAY TO USE THE BEDSIDE COMODE, AND GOT HERSELF BACK INTO THE CHAIR WITHOUT ANY ASSISTANCE. THIS RN, LEONEL RN WITH CASE MANAGMENT HAVE TOLD EXPLAINED THIS TO HER MULTIPLE TIMES AND EXPLAINED THAT SHE DOESN'T NEED AN ACUTE CARE SETTING. IF SHE IS WILLING TO GO TO PRISON FACILITY OR AN ADULT FOSTER HOME WE CAN DO THAT, BUT SHE REFUSED. SHE WAS GIVEN PAPER WORK FROM LEONEL OF A NUMBER SHE CAN CALL IF SHE FEELS LIKE SHE SHOULDN'T BE DISCHARGED AND EDUCATED ON IT. THIS RN HAS PROVIDED THERAPEUTIC COMMUNICATION AND ACTIVE LISTENING TO THE PATIENT AND ACKNOWLEDGED HER CONCERNS. THIS RN PROVIDED EDUCATION TO WHY THE PROCEDURE OCCURED, THAT THE BLOOD FLOW HAS IMPROVED, HER FEARS GOING HOME, THAT SHE WILL HAVE HOME HEALTH COMING TO SEE HER, AND PROVIDED NON PHARMOLOGICAL OPTIONS FOR PAIN RELIEF. THIS RN WILL CONTINUE TO PROVIDE CARE AND EDUCATION TO THE PATENT. AWAITING DISCHARGE INSTRUCTIONS TO PROVIDE TO PATIENT AND AWAITING TO INFORM HER OF THE TIME SHE IS GETTING PICKED UP. CALL LIGHT WITHIN REACH.
[2021-07-15] MEDS ORDERED: CLOP75 PO (14:31)
[2021-07-15] MEDS ORDERED: FERSU300 PO (14:32)
[2021-07-15] MEDS ORDERED: XARELTO2.5 MG PO (14:32)
--- NOTE | 2021-07-15 14:32 | NUR ---
Pt. is sitting up and awake. Pt. welcomes my visit. Pt. is unsettled about hospitalization, but even more unsettled about her discharge. Listen empathetically while attempting to provide some anxiety containment. Pt. verbalized her confusion regarding care and the timing of her discharge. Tried to normalize the pt. experience. Pt. continued to display evidence of irritability. Explore source of pts. asia and belief. Prayed with Pt. Soon after prayer nurses began preparing for discharge. Pt. verbalized gratitude for the spiritual care visit.
[2021-07-15] MEDS ORDERED: Crestor20 MG PO (14:33)
--- NOTE | 2021-07-15 15:09 | NUR ---
DISCHARGE THIS RN WENT OVER THE DISCHARGE EDUCATION. THIS RN WENT OVER THE NEW MEDICATIONS AND WHICH MEDICATIONS THE PATIENT IS NO LONGER TAKING, AND EXPLAINED WHY THE MEDICATIONS WERE STOPPING AND THE NEW MEDICATIONS SHE WAS TAKING. THIS RN WENT OVER WITH THE PATIENT FOLLOW UP APPOINTMEN WITH MD AMATO, AND TO FOLLOW UP WITH PCP. PATIENT VERBALIZED UNDERSTANDING. PATIENT IS DRESSED AND BELONGINGS ALL GATHERED AND WITH PATIENT. PATIENT AMBULATED OVER TO THE BENCH IN HER ROOM USING THE WALKER TO GET DRESSED. AWAITING RIDE FOR TO TAKE PATIENT HOME. THIS RN WILL CALL HER FRIEND BRENT ONCE THE RIDE HAS CALLED BACK WITH THE TIME, SO THAT BRENT CAN MEET HER AT HER HOUSE. WILL CONTINUE TO MONITOR AND PROVIDE CARE. CALL LIGHT WITHIN REACH.
--- NOTE | 2021-07-15 16:18 | NUR ---
DISCHARGED-LEFT PATIENT LEFT VIA WHEELCHAIR AT APROX 1530. PATIENT RIDE HOME WAS [employer]. LIZ HAD ALL BELONGINGS WITH HER AND ALL EDUCATION INFORMATION.
== END 2021-07-15 15:30 | disposition home health service (06) | DRG 272 ==
LOC: ER 09:14 → MEDS 12:05 → PCU 07-13 13:40
PROVIDERS: Emergency Medicine; Hospitalist; Internal Medicine; ADMIT Family Medicine
PROC: 04CK3ZZ Extirpation of Matter from Right Femoral Artery, Percutaneous Approach (ICD-10-PCS; principal; 2021-07-13)
PROC: 047K341 Dilation of Right Femoral Artery with Drug-eluting Intraluminal Device, using Drug-Coated Balloon, Percutaneous Approach (ICD-10-PCS; 2021-07-13)
PROC: 047M3ZZ Dilation of Right Popliteal Artery, Percutaneous Approach (ICD-10-PCS; 2021-07-13)
PROC: B41F1ZZ Fluoroscopy of Right Lower Extremity Arteries using Low Osmolar Contrast (ICD-10-PCS; 2021-07-13)
DX: I70.221 Atherosclerosis of native arteries of extremities with rest pain, right leg (principal); Z20.822 Contact with and (suspected) exposure to COVID-19; E78.5 Hyperlipidemia, unspecified; G47.00 Insomnia, unspecified; I48.91 Unspecified atrial fibrillation; D64.9 Anemia, unspecified; I25.10 Atherosclerotic heart disease of native coronary artery without angina pectoris; I10 Essential (primary) hypertension; K21.9 Gastro-esophageal reflux disease without esophagitis; E03.9 Hypothyroidism, unspecified; F41.9 Anxiety disorder, unspecified; F32.A Depression, unspecified; I25.2 Old myocardial infarction; M48.061 Spinal stenosis, lumbar region without neurogenic claudication; Z96.60 Presence of unspecified orthopedic joint implant; Z28.21 Immunization not carried out because of patient refusal; Z79.899 Other long term (current) drug therapy; Z95.1 Presence of aortocoronary bypass graft; Z88.8 Allergy status to other drugs, medicaments and biological substances; Z90.710 Acquired absence of both cervix and uterus; Z90.49 Acquired absence of other specified parts of digestive tract
CPT/HCPCS: 0241U; 36415; 37227; 37228; 75625; 75716; 75774; 76937; 80048; 80053; 82728; 83540; 83550; 85025; 85347; 85520; 85610; 85730; 93925; 96365; 96374; 96375; 99152; 99153; 99285-25; A9270; C1714; C1725; C1760; C1769; C1874; C1887; C1894; C2623; C9113; J1644; J2250; J2405; J3010; J3480; J7030; J7040; J7050; Q9967